=== PATIENT | female | born 2000 | race Caucasian/White ===

== ENCOUNTER 2024-05-28 11:28 | Emergency (ER) | payer MEDICAID, SELFPAY ==
[2024-05-28 11:30] VITALS: BMI 22.1
[2024-05-28 11:36] VITALS: BP 113/68; PULSE 92; RESP 19; TEMP 36.7; O2SAT 97; BMI 21.7
--- NOTE | 2024-05-28 11:38 | XR_ITS ---
ADDENDUM: Examination: OB Transvaginal ultrasound of the pelvis, complete Technique: Transvaginal sonographic images pelvis performed using gandhi scale imaging Exam date and time: May 28, 2024 1148 hours INDICATIONS: History adrenal medium cramping beginning 30 minutes ago FINDINGS: Uterus 8.3 x 5.0 x 6.3 cm CRL 1.8 cm corresponds to 8 weeks 2 days gestational age Cardiac motion 173 BPM Adjacent subchorionic hemorrhage 5 x 3 x 7 mm Right ovary 2.3 cm arterial flow Left ovary 2.4 cm arterial flow IMPRESSION: Viable intrauterine gestation 8 weeks 2 days. By: Dr. Ludwig Valdez on 05/30/24 9:16am --------- Examination: Complete OB ultrasound S than 14 weeks Date and time of exam: May 28, 2024 1224 hrs. Indications: A vaginal bleeding and pelvic cramping beginning 30 minutes ago Findings: Viable intrauterine single fetus with single amniotic sac pole 1.8 cm corresponds to 8 weeks 2 days gestational age Cardiac motion 173 BPM Adjacent subchorionic hemorrhage 5 x 3 x 7 mm. Survey of intracranial anatomy, spinal anatomy, abdominal anatomy, four-chamber heart performed with no abnormalities identified. Right ovary 2.3 cm arterial flow Left ovary 2.4 cm arterial flow Impression: Viable intrauterine gestation 8 weeks 2 days. [facility]
--- NOTE | 2024-05-28 11:59 | EDNOTE_ITS ---
<Statement entered by Fatuma Francisco MD - 05/30/24 07:12> As co-signing physician, I was present and available for consult prn. I concur with the plan and care as documented by the midlevel provider. ED OB Contraction Preg RMI/HPI General Chief complaint: Vaginal Bleeding Stated complaint: HEAVY BLEEDING x 20 MIN AND + PREG Time Seen by Provider: 05/28/24 11:38 Source: patient Arrival date/time: 05/28/24 11:28 This is a 23-year-old female who presents to the emergency department with complaints of vaginal bleeding for 30 minutes. She does report she is approximately 14 weeks . History of a 3 para 0 A2 1 stillbirth. Denies any abdominal pain no flank pain no dysuria. Mode of arrival: ambulatory Limitations: no limitations Related Data Allergies Allergy/AdvReac Type Severity Reaction Status Date / Time cephalexin (From Keflex) Allergy Hallucinati Verified 05/28/24 11:33 ng Review of Systems Review of Systems Systems Reviewed: All systems reviewed, normal except as documented Narrative Review of Systems: Gen: No fever, no chills, no weight loss EYES: No discharge, no visual changes, no pain HEENT: No ear pain, no congestion, no sore throat PULM: No shortness of breath, no cough, no congestion CV: No chest pain, no dyspnea on exertion, no palpitations GI: No nausea, no vomiting, no diarrhea, no pain, no constipation : No frequency, no urgency, no dysuria, ++vaginal bleeding Musc/skel: No joint pain, no back pain Skin: No rash Psyc: No hallucinations, no depression Heme/Lymph: No easy bleeding or bruising tendencies Neuro: No weakness, no headache ED Exam General Limitations: Present no limitations General appearance: Present alert and in no apparent distress Head Head exam: Present atraumatic Eye Eye exam: Present normal appearance, PERRL and EOMI ENT ENT exam: Present normal exam, normal oropharynx and mucous membranes moist Neck Neck exam: Present normal inspection, full ROM and trachea midline Chest Chest inspection: Present normal inspection and symmetric chest wall rise Respiratory Respiratory exam: Present normal lung sounds bilaterally Cardiovascular Cardiovascular exam: Present regular rate, normal rhythm and normal heart sounds Abdominal Exam Abdominal exam: Present soft and normal bowel sounds Extremities Exam Extremities exam: Present normal inspection and full ROM Back Exam Back exam: Present normal inspection and full ROM Neurological Exam Neurological exam: Present alert, oriented X3 and CN II-XII intact Psychiatric Psychiatric exam: Present normal affect and normal mood Skin Skin exam: Present warm, dry, intact and normal color Course Quality Measures none Orders Category Date Time Status US OB >= 14 weeks Fetus Stat Exams 05/28/24 11:38 Completed US OB transvaginal Stat Exams 05/28/24 12:41 Ordered ABO/RH Type Stat Lab 05/28/24 12:05 Completed Beta HCG,Quantitative Stat Lab 05/28/24 12:05 Completed CBC Stat Lab 05/28/24 12:05 Completed Comprehensive Metabolic Panel Stat Lab 05/28/24 12:05 Completed Urinalysis Stat Lab 05/28/24 11:38 Ordered Urine Culture Stat Lab 05/28/24 11:38 Ordered Vital Signs Vital signs: Vital Signs Temperature 98.0 F 05/28/24 11:36 Pulse Rate 92 05/28/24 11:36 Respiratory Rate 19 05/28/24 11:36 Blood Pressure 113/68 05/28/24 11:36 Pulse Oximetry (%) 97 05/28/24 11:36 Oxygen Delivery Method Room Air 05/28/24 11:36 Vaginal Bleeding MDM Narrative MDM Narrative: female presents to the ED today for vaginal bleeding. Transvaginal ultrasound reveals an IUP of approximately 8 weeks without adnexal masses, with a intra subchronic hemorrhage.. No OB consult indicated at this time. No RhoGam indicated given the patient's Rh status. No antibiotics indicated for UTI or asymptomatic bacteriuria anemia in given urine without leukocytosis, without nitrates or without bacteria. Patient is comfortable with plan patient will follow up with OB in 2 days for repeat bHCG levels. Strict return to ED precautions given. Patient verbalized understanding Patient data External records reviewed:: [facility] previous records Clinical information provided by:: patient and parent Social determinants that could affect healthcare access:: none Patient has the following chronic illnesses:: no How is presenting disease/condition affected by chronic disease/condition?: no chronic disease Evaluation data The following diagnostics were reviewed and interpreted by me:: lab results and radiology exam(s) Lab and/or radiology exams considered but not ordered:: no Interpretation Summary: Examination: Complete OB ultrasound S than 14 weeks Date and time of exam: May 28, 2024 1224 hrs. Indications: A vaginal bleeding and pelvic cramping beginning 30 minutes ago Findings: Viable intrauterine single fetus with single amniotic sac pole 1.8 cm corresponds to 8 weeks 2 days gestational age Cardiac motion 173 BPM Adjacent subchorionic hemorrhage 5 x 3 x 7 mm. Survey of intracranial anatomy, spinal anatomy, abdominal anatomy, four-chamber heart performed with no abnormalities identified. Right ovary 2.3 cm arterial flow Left ovary 2.4 cm arterial flow Impression: Viable intrauterine gestation 8 weeks 2 days. Medications / Prescriptions Medications or Prescriptions considered but not ordered:: no Medication administrations:: No Consultations Consultation(s) initiated? (list below): No Diagnosis Vaginal Bleeding Differential Diagnosis: missed , threatened , dysfunctional uterine bleeding, menometrorrhagia and incomplete Most likely diagnosis given after review of the tests above:: Threatened , subchorionic hemorrhage. Admission Indicated Admission indicated?: not indicated Admission Request Was there a request for admission?: No Disposition Plan Disposition Plan: Discharge Discharge Attestation Discharge Attestation: The patient and all family members were given an opportunity to ask questions and understood the discharge instructions. Discharge instructions specifically effects, indications for sooner follow up or return to the emergency department, and the expected course of current diagnosis. Patient condition: Stable Discharge Plan Plan Patient Disposition: HOME (Self Care) Patient condition on transfer: Stable Problem List Clinical Impression: Vaginal bleeding, Subchorionic hemorrhage in first trimester Patient/Caregiver Discharge Instructions Discharge Activity: activity as tolerated Education Materials: Bleeding During Early Additional Instructions: It is very important for you to follow-up with your OB doctor. Bed rest. Return to the emergency department this any worsening symptoms any condition. Print Language: Kiswahili Stand Alone Forms: Anya Award Info., Patient Portal Info Letter PA/ZAYDA Supervising Physician PA/ZAYDA Supervising Physician: Dr. Metcalf
[2024-05-28 12:22] LABS: Basophils # (Auto) 0.1 Thou/mm3 (0.0-0.2); Basophils % (Auto) 1 % (0-2.5); Eosinophils # (Auto) 0.1 Thou/mm3 (0.0-0.5); Eosinophils % (Auto) 1 % (0-10); Hematocrit 30.5 % (36.0-46.0); Hemoglobin 11.2 g/dL (12.0-16.0); Immature Granulocytes % (Auto) 1 % (0-0); Lymphocytes # (Auto) 1.7 Thou/mm3 (1.0-4.8); Lymphocytes % (Auto) 18 % (10-50); Mean Corpuscular HGB Conc 36.7 g/dl (31.0-37.0); Mean Corpuscular Hemoglobin 32.2 pg (25.0-35.0); Mean Corpuscular Volume 88 fL (80-100); Monocytes # (Auto) 1.8 Thou/mm3 (0.0-0.8); Monocytes % (Auto) 19 % (0-12); Neutrophils # (Auto) 5.8 Thou/mm3 (1.8-7.7); Neutrophils % (Auto) 62 % (37-80); Nucleated Red Blood Cell % 0 /100 WBC (0); Platelet Count 244 Thou/mm3 (140-440); RDW Standard Deviation 42.6 fL (36.4-46.3); Red Blood Count 3.48 Miln/mm3 (4.00-5.20); White Blood Count 9.4 Thou/mm3 (3.6-11.0)
[2024-05-28 13:05] LABS: Alanine Aminotransferase 30 U/L (10-49); Albumin, Serum 4.7 gm/dL (3.5-5.0); Albumin/Globulin Ratio 1.6 (1.2-2.2); Alkaline Phosphatase 70 U/L (46-116); Anion Gap 10 (7-16); Aspartate Amino Transferase 35 U/L (0-34); BUN/Creatinine Ratio 11 Ratio (12-20); Beta HCG,Quantitative 48205 mIU/mL (<5.0); Bilirubin,Total 0.7 mg/dL (0.3-1.2); Blood Urea Nitrogen 8 mg/dL (9-23); Calcium 9.3 mg/dL (8.3-10.6); Calcium (Corrected) 9.3 mg/dL (8.5-10.1); Carbon Dioxide 23.3 mMol/L (20.0-31.0); Chloride 102 mMol/L (98-107); Creatinine (Component) 0.7 mg/dL (0.6-1.3); Estimated Creatinine Clearance 105.2 mL/min (>60); Glucose 91 mg/dL (74-106); Osmolality,Calculated 268 (275-295); Potassium 3.2 mMol/L (3.4-5.1); Sodium 135 mMol/L (136-145); Total Protein 7.7 gm/dL (5.7-8.2); eGFR > 60 See Note
[2024-05-28 14:28] VITALS: BP 126/73; PULSE 98; RESP 16; TEMP 36.8; O2SAT 99
== END 2024-05-28 14:47 | disposition home or self-care (01) ==
LOC: SERX 14:40
PROVIDERS: Nurse Practitioner Primary Care; Emergency Provider Emergency Medicine
DX: O20.8 Other hemorrhage in early pregnancy (principal); Z3A.14 14 weeks gestation of pregnancy
CPT/HCPCS: 36415; 76805; 76817; 80053; 81001; 84702; 85025; 86900; 86901; 87086; 99284

== ENCOUNTER 2024-07-18 13:45 | Emergency (ER) | payer MEDICAID, SELFPAY ==
[2024-07-18 13:55] VITALS: BP 142/85; PULSE 103; RESP 18; TEMP 36.6; O2SAT 98
--- NOTE | 2024-07-18 13:59 | XR_ITS ---
Examination: Complete OB ultrasound greater than 14 weeks Date and time of exam: July 18, 2024 1415 hours INDICATIONS: Heavy vaginal bleeding beginning 20 minutes ago, subchorionic hemorrhage 5 x 3 x 7 mm on OB Y sonogram May 28, 2024 Findings: Viable intrauterine single fetus with single amniotic sac presentation transverse head left upper abdomen Cardiac motion 162 BPM Placenta anterior grade 1, large subchorionic hemorrhage 9.4 x 3.6 x 7.4 cm Umbilical cord insertion seen Cervix 2.1 cm closed Right ovary 2.3 cm arterial flow Left ovary obscured by bowel gas. Composite estimated gestational age based on BPD, head circumference, abdominal circumference, femur length is 15 weeks 5 days Estimated weight 130 g. Survey of intracranial anatomy, spinal anatomy, abdominal anatomy, four-chamber heart performed with no abnormalities identified. IMPRESSION: Viable intrauterine gestation., Transverse presentation Placenta anterior grade 1, large subchorionic hemorrhage 9.4 x 3.6 x 7.4 cm
--- NOTE | 2024-07-18 14:00 | EDRME_ITS ---
Rapid Medical Screening Exam [facility] Arrival date/time: 07/18/24 13:45 23-year-old female presents to the emergency room with a chief complaint of vaginal bleeding x 2 days patient is currently 16 weeks . Patient is currently taking blood thinner shots for blood clots. Patient began having bleeding and pelvic cramping. I have greeted and performed a focused initial assessment of this patient. A comprehensive ED assessment and evaluation of the patient, analysis of all test results, and completion of the medical decision making process will be conducted by additional ED providers. Chief Complaint: OB/Uterine Contractions Vital signs: Vital Signs Temperature 98 F 07/18/24 13:55 Pulse Rate 103 H 07/18/24 13:55 Respiratory Rate 18 07/18/24 13:55 Blood Pressure 142/85 H 07/18/24 13:55 Pulse Oximetry (%) 98 07/18/24 13:55 Oxygen Delivery Method Room Air 07/18/24 13:55 Vital signs reviewed by provider: Yes
[2024-07-18 14:30] LABS: Basophils # (Auto) 0.1 Thou/mm3 (0.0-0.2); Basophils % (Auto) 0 % (0-2.5); Eosinophils % (Auto) 0 % (0-10); Hematocrit 30.5 % (36.0-46.0); Hemoglobin 11.7 g/dL (12.0-16.0); Immature Granulocytes % (Auto) 1 % (0-0); Immature Granulocytes Auto 0.27 Thou/mm3 (0.00-0.00); Lymphocytes % (Auto) 14 % (10-50); Mean Corpuscular HGB Conc 38.4 g/dl (31.0-37.0); Mean Corpuscular Hemoglobin 33.7 pg (25.0-35.0); Mean Corpuscular Volume 88 fL (80-100); Monocytes # (Auto) 1.6 Thou/mm3 (0.0-0.8); Monocytes % (Auto) 7 % (0-12); Neutrophils # (Auto) 16.4 Thou/mm3 (1.8-7.7); Neutrophils % (Auto) 77 % (37-80); Nucleated Red Blood Cell % 0 /100 WBC (0); Platelet Count 306 Thou/mm3 (140-440); RDW Standard Deviation 43.5 fL (36.4-46.3); Red Blood Count 3.47 Miln/mm3 (4.00-5.20); White Blood Count 21.4 Thou/mm3 (3.6-11.0)
[2024-07-18 15:16] LABS: Collection Type, Urine Clean Catch
[2024-07-18 15:18] LABS: Alanine Aminotransferase 13 U/L (10-49); Albumin, Serum 4.4 gm/dL (3.5-5.0); Albumin/Globulin Ratio 1.4 (1.2-2.2); Alkaline Phosphatase 62 U/L (46-116); Anion Gap 11 (7-16); Aspartate Amino Transferase 30 U/L (0-34); BUN/Creatinine Ratio 18 Ratio (12-20); Beta HCG,Quantitative 21552 mIU/mL (<5.0); Bilirubin,Total 0.8 mg/dL (0.3-1.2); Blood Urea Nitrogen 11 mg/dL (9-23); Calcium 9.1 mg/dL (8.3-10.6); Calcium (Corrected) 9.1 mg/dL (8.5-10.1); Carbon Dioxide 20.8 mMol/L (20.0-31.0); Chloride 103 mMol/L (98-107); Creatinine (Component) 0.6 mg/dL (0.6-1.3); Globulin 3.2 gm/dL (2.3-3.5); Glucose 80 mg/dL (74-106); Osmolality,Calculated 268 (275-295); Potassium 3.6 mMol/L (3.4-5.1); Sodium 135 mMol/L (136-145); Total Protein 7.6 gm/dL (5.7-8.2); eGFR > 60 See Note
[2024-07-18 15:46] LABS: Bacteria,Urine 1+; Bilirubin,Urine Negative (Negative); Blood,Urine 2+ (Negative); Clarity,Urine Clear (Clear/Hazy); Color,Urine Yellow (Lt Yel-Yel); Glucose, Urine Negative (Negative); Ketones,Urine 1+ (Negative); Leukocyte Esterase,Urine Negative (Negative); Nitrite,Urine Negative (Negative); PH,Urine 6.5 (5.0-7.0); Protein,Urine Trace (Neg - Trace); RBC,Urine 2 /hpf (0-3); Specific Gravity,Urine 1.019 (1.001-1.035); Squamous Epithelial Cell,Urine 1 /hpf (0-5); Urobilinogen,Urine Negative mg/dL (0.0-1.0); WBC,Urine 1 /hpf (0-5)
--- NOTE | 2024-07-18 17:10 | EDNOTE_ITS ---
ED General RME/HPI General Chief complaint: OB/Uterine Contractions Stated complaint: PREG 16WKS, BLEEDING HEAVILY, SOME CRAMPING Time Seen by Provider: 07/18/24 17:01 Arrival date/time: 07/18/24 13:45 CC: Gush of vaginal blood with low abdominal cramping HPI patient is a at estimated 15 weeks with a large amount of vaginal bleeding that has since eased up. The patient is on Lovenox for clots. Patient denies fever chills shortness of breath or difficulty breathing. She is seen by Dr. Addison for OB. Patient is awake alert oriented nontoxic-appearing not in any acute distress. RME / HPI RME / HPI narrative: 07/18/24 13:45 23-year-old female presents to the emergency room with a chief complaint of vaginal bleeding x 2 days patient is currently 16 weeks . Patient is currently taking blood thinner shots for blood clots. Patient began having bleeding and pelvic cramping. I have greeted and performed a focused initial assessment of this patient. A comprehensive ED assessment and evaluation of the patient, analysis of all test results, and completion of the medical decision making process will be conducted by additional ED providers. Related Data Allergies Allergy/AdvReac Type Severity Reaction Status Date / Time cephalexin (From Keflex) Allergy Hallucinati Verified 07/18/24 13:48 ng Review of Systems Review of Systems Narrative Review of Systems: GEN: No fever, no chills, no weight loss EYES: No discharge, no visual changes, no pain HEENT: No ear pain, no congestion, no sore throat PULM: No shortness of breath, no cough, no congestion CV: No chest pain, no dyspnea on exertion, no palpitations GI: No nausea, no vomiting, no diarrhea, no pain, no constipation : No frequency, no urgency, no dysuria MUSC/SKEL: No joint pain, no back pain SKIN: No rash PSYCH: No hallucinations, no depression HEME/LYMPH: No easy bleeding or bruising tendencies NEURO: No weakness, no headache Past Medical History Past Medical History CARDIAC: Negative Congestive Heart Failure RESPIRATORY: Negative Chronic Obstructive Pulmonary Disease (COPD) GENITOURINARY: Negative Renal Disease ENDOCRINE: Negative Diabetes Mellitus Type 1 or Diabetes Mellitus Type 2 Social History SMOKING STATUS: Former smoker ED Exam Narrative Physical exam: [General: Anxious but not in any acute distress Head normocephalic HEENT: Within acceptable limits Neck is supple nontender Chest equal chest rise nontender to palpation Respiratory: Clear to auscultation no wheezes crackles or rubs CV: Rate rhythm is regular no murmurs rubs or clicks Abdomen is soft nontender no masses positive bowel sounds all 4 quadrants Back: No CVA tenderness no spinous process tenderness from cervical spine thoracic and lumbar spine Skin: Intact no petechiae rash induration ulceration or crepitus Extremities: Moving all extremity against resistance cap refill less than 2 seconds neurosensory intact Neuro: Awake alert oriented x3 Glascow coma 15 no focal deficits] Course Quality Measures none Orders Category Date Time Status US OB >= 14 weeks Fetus Stat Exams 07/18/24 13:59 Completed ABO/RH Type Stat Lab 07/18/24 14:09 Completed Beta HCG,Quantitative Stat Lab 07/18/24 14:09 Completed CBC Stat Lab 07/18/24 14:09 Completed CMP [Comprehensive Metabolic Panel] Stat Lab 07/18/24 14:09 Completed UA [Urinalysis] Stat Lab 07/18/24 14:59 Completed Vital Signs Vital signs: Vital Signs Temperature 98 F 07/18/24 13:55 Pulse Rate 103 H 07/18/24 13:55 Respiratory Rate 18 07/18/24 13:55 Blood Pressure 142/85 H 07/18/24 13:55 Pulse Oximetry (%) 98 07/18/24 13:55 Oxygen Delivery Method Room Air 07/18/24 13:55 [facility] Patient data External records reviewed:: [facility] previous records Clinical information provided by:: patient Social determinants that could affect healthcare access:: none Patient has the following chronic illnesses:: On blood thinners for clots. How is presenting disease/condition affected by chronic disease/condition?: e xacerbated by Evaluation data The following diagnostics were reviewed and interpreted by me:: lab results and radiology exam(s) Lab and/or radiology exams considered but not ordered:: CBC shows a leukocytosis of 21.4 H&H of 11.7 and 30.5 respectively. Platelets at 306 CMP shows no significant electrolyte imbalances renal impairment transaminitis or T. bili elevation. Urine shows 2+ blood 1+ ketones 1+ bacteremia no leukocyte esterase or nitrite. Blood type is be positive. ultrasound shows the patient has a viable gestation at 15 weeks 5 days with heart tones of 162 patient also has a placenta anterior grade large subchorionic hemorrhage at 9 x 0.4 x 3 0.6 x 7.4 cm. Interpretation Summary: Patient's case discussed with Dr. Anders, MOBILE HOME SET UP PERSON for the patient, who wants the patient to stop the Lovenox aspirin and see his office tomorrow morning. Medications Medications considered but not ordered:: None Medication administrations:: None Consultations Consultation(s) initiated? (list below): Yes Consultation #1 (Physician, Specialty, Details): Kyra Time: 17:14 Diagnosis Differential Diagnosis ED Complaint MDM: Subchorionic hemorrhage, SAB, miscarriage Most likely diagnosis given after review of the tests above:: Subchorionic hemorrhage Admission Indicated Admission indicated?: not indicated Explain why admission is indicated or not indicated:: Stable for outpatient follow-up Admission Request Was there a request for admission?: No Disposition Plan Disposition Plan: Discharge Discharge Attestation Discharge Attestation: The patient and all family members were given an opportunity to ask questions and understood the discharge instructions. Discharge instructions specifically effects, indications for sooner follow up or return to the emergency department, and the expected course of current diagnosis. Patient condition: Stable Medical Decision Making Differential Diagnosis Differential Diagnosis: Subchorionic hemorrhage, SAB, miscarriage Lab Data 07/18/24 14:09 07/18/24 14:09 Labs: Lab Results 07/18/24 07/18/24 Range/Units 14:09 14:59 WBC 21.4 H (3.6-11.0) Thou/mm3 RBC 3.47 L (4.00-5.20) Miln/mm3 Hgb 11.7 L (12.0-16.0) g/dL Hct 30.5 L (36.0-46.0) % MCV 88 (80-100) fL MCH 33.7 (25.0-35.0) pg MCHC 38.4 H (31.0-37.0) g/dl RDW Std Deviation 43.5 (36.4-46.3) fL Plt Count 306 (140-440) Thou/mm3 Neut % (Auto) 77 (37-80) % Lymph % (Auto) 14 (10-50) % [place] % (Auto) 7 (0-12) % Eos % (Auto) 0 (0-10) % Baso % (Auto) 0 (0-2.5) % Neut # (Auto) 16.4 H (1.8-7.7) Thou/mm3 Lymph # (Auto) 3.0 (1.0-4.8) Thou/mm3 [place] # (Auto) 1.6 H (0.0-0.8) Thou/mm3 Eos # (Auto) 0.0 (0.0-0.5) Thou/mm3 Baso # (Auto) 0.1 (0.0-0.2) Thou/mm3 Immature Gran # (Auto) 0.27 H (0.00-0.00) Thou/mm3 Absolute Nucleated RBC 0.00 (0.00-0.00) Thou/mm3 Immature Gran % 1 H (0-0) % Nucleated RBC % 0 (0) /100 WBC Sodium 135 L (136-145) mMol/L Potassium 3.6 (3.4-5.1) mMol/L Chloride 103 (98-107) mMol/L Carbon Dioxide 20.8 (20.0-31.0) mMol/L Anion Gap 11 (7-16) BUN 11 (9-23) mg/dL Creatinine 0.6 (0.6-1.3) mg/dL Estim Creat Clear Calc Not Performed. eGFR > 60 (60 - ) See Note BUN/Creatinine Ratio 18 (12-20) Ratio Glucose 80 (74-106) mg/dL Calculated Osmolality 268 L (275-295) Calcium 9.1 (8.3-10.6) mg/dL Corrected Calcium 9.1 (8.5-10.1) mg/dL Total Bilirubin 0.8 (0.3-1.2) mg/dL AST 30 (0-34) U/L ALT 13 (10-49) U/L Alkaline Phosphatase 62 (46-116) U/L Total Protein 7.6 (5.7-8.2) gm/dL Albumin 4.4 (3.5-5.0) gm/dL Globulin 3.2 (2.3-3.5) gm/dL Albumin/Globulin Ratio 1.4 (1.2-2.2) Beta HCG, Quant 36301 (<5.0) mIU/mL Ur Collection Type Clean Catch Urine Color Yellow (Lt Yel-Yel) Urine Clarity Clear (Clear/Hazy) Urine pH 6.5 (5.0-7.0) Ur Specific [place] 1.019 (1.001-1.035) Urine Protein Trace (Neg - Trace) Urine Glucose (UA) Negative (Negative) Urine Ketones 1+ A (Negative) Urine Blood 2+ A (Negative) Urine Nitrite Negative (Negative) Urine Bilirubin Negative (Negative) Urine Urobilinogen (Auto) Negative (0.0-1.0) mg/dL Ur Leukocyte Esterase Negative (Negative) Urine RBC 2 (0-3) /hpf Urine WBC 1 (0-5) /hpf Ur Squamous Epith Cells 1 (0-5) /hpf Urine Bacteria 1+ A (None) Blood Type B Positive Blood Bank Wristband ID Yes Discharge Plan Plan Patient Disposition: HOME (Self Care) Patient condition on transfer: Stable Prescriptions/Referrals Referrals: Charline Gatica MD [Primary Care Provider] - In 1 week Problem List Clinical Impression: Subchorionic hemorrhage in first trimester Patient/Caregiver Discharge Instructions Other Activity Instructions:: Stop Lovenox, and aspirin, follow-up with Dr. Addison first thing tomorrow morning Education Materials: Bleeding During Early Print Language: Kuwaiti Stand Alone Forms: Anya Award Info., Patient Portal Info Letter, Work/School Release PA/CONSTRUCTION ENGINEERING MANAGER Supervising Physician PA/CONSTRUCTION ENGINEERING MANAGER Supervising Physician: Clifford Figueroa ENP
[2024-07-18 17:27] VITALS: BMI 22.3
== END 2024-07-18 17:30 | disposition home or self-care (01) ==
PROVIDERS: Nurse Practitioner Family; Emergency Provider Emergency Medicine; PCP Family Medicine
DX: O20.8 Other hemorrhage in early pregnancy (principal); Z3A.16 16 weeks gestation of pregnancy
CPT/HCPCS: 36415; 76805; 80053; 81001; 84702; 85025; 86900; 86901; 99284

== ENCOUNTER 2024-07-22 15:42 | Emergency (ER) | payer MEDICAID, SELFPAY ==
[2024-07-22 15:43] VITALS: BMI 22.3
[2024-07-22 16:32] VITALS: BP 115/70; PULSE 95; RESP 16; TEMP 37.1; O2SAT 98
--- NOTE | 2024-07-22 17:05 | EDNOTE_ITS ---
ED OB Contraction Preg RMI/HPI General Chief complaint: OB/Uterine Contractions Stated complaint: , bleeding, high risk 16 weeks Arrival date/time: 07/22/24 15:42 RME / HPI RME / HPI Narrative: G3, P0, 23-year-old female presents with ongoing bleeding, now worse x 2 days with large clots. She is complaining of pressure in the lower pelvic region. She has a history of subchorionic hemorrhage x 3. With her first which ended in miscarriage due to subchorionic hemorrhage at 28 weeks. Second ended in miscarriage due to subchorionic hemorrhage at 24 weeks and the patient is now currently at 16 weeks with known subchorionic hemorrhage. She is complaining of some fatigue and weakness as well as paleness of her skin and dry lips. She denies any fever or chills, dysuria, frequency or flank pain. Related Data Allergies Allergy/AdvReac Type Severity Reaction Status Date / Time cephalexin (From Keflex) Allergy Hallucinati Verified 07/18/24 13:48 ng Course Orders Category Date Time Status US OB transvaginal Stat Exams 07/22/24 16:59 Ordered ABO/RH Type Stat Lab 07/22/24 16:59 Ordered Beta HCG,Quantitative Stat Lab 07/22/24 16:59 Ordered CBC Stat Lab 07/22/24 16:59 Ordered CMP [Comprehensive Metabolic Panel] Stat Lab 07/22/24 16:59 Ordered PTT [Partial Thromboplastin Time] Stat Lab 07/22/24 17:01 Ordered Prothrombin Time with INR Stat Lab 07/22/24 17:01 Ordered UA, C/S IF [Urinalysis, C/S if Indicated] Stat Lab 07/22/24 16:59 Ordered Vital Signs Vital signs: Vital Signs Temperature 98.8 F 07/22/24 16:32 Pulse Rate 95 07/22/24 16:32 Respiratory Rate 16 07/22/24 16:32 Blood Pressure 115/70 07/22/24 16:32 Pulse Oximetry (%) 98 07/22/24 16:32 Oxygen Delivery Method Room Air 07/22/24 16:32 Discharge Plan Patient/Caregiver Discharge Instructions Print Language: Greenlandic
--- NOTE | 2024-07-22 17:07 | XR_ITS ---
Examination: Complete OB ultrasound greater than 14 weeks Date and time of exam: July 22, 2024 1716 hours Comparison July 18, 2024 INDICATIONS: Worsening vaginal bleeding today, vaginal bleeding this week, diagnosis high risk , large subchorionic hemorrhage noted on pelvic sonogram July 18, 2024 Findings: Viable intrauterine single fetus with single amniotic sac presentation transverse head of the upper abdomen Cardiac motion 155 BPM Placenta anterior grade 1 Subchorionic hemorrhage 11 x 2.6 x 5.4 cm Umbilical cord insertion seen Amniotic fluid index adequate Cervix 2.9 cm Right ovary 2.6 cm arterial flow Left ovary obscured by bowel gas. Composite estimated gestational age based on BPD, head circumference, abdominal circumference, femur length is 16 weeks 3 days Estimated weight 148 g. Survey of intracranial anatomy, spinal anatomy, abdominal anatomy, four-chamber heart performed with no abnormalities identified. Impression: Viable intrauterine gestation transverse presentation Again noted large subchorionic hemorrhage, 11.0 x 2.6 x 5.4 cm.
[2024-07-22 18:50] LABS: Collection Type, Urine Clean Catch
[2024-07-22 19:14] LABS: Bacteria,Urine 2+; Bilirubin,Urine Negative (Negative); Blood,Urine 3+ (Negative); Clarity,Urine Clear (Clear/Hazy); Color,Urine Colorless (Lt Yel-Yel); Culture Indicated,Urine Yes; Glucose, Urine Negative (Negative); Ketones,Urine Negative (Negative); Leukocyte Esterase,Urine Positive (Negative); Nitrite,Urine Negative (Negative); PH,Urine 6.5 (5.0-7.0); Protein,Urine Negative (Neg - Trace); RBC,Urine 3 /hpf (0-3); Specific Gravity,Urine 1.007 (1.001-1.035); Squamous Epithelial Cell,Urine 5 /hpf (0-5); Urobilinogen,Urine Negative mg/dL (0.0-1.0); WBC,Urine 6 /hpf (0-5)
--- NOTE | 2024-07-22 19:57 | PC.NURSE ---
@195 PT WAS CALLED OUTSIDE OF ER AND IN ER LOBBY FOR REIVEW AND NO ANSWER
--- NOTE | 2024-07-22 21:00 | PC.NURSE ---
called pt in er lobby and outside of er and no answer
--- NOTE | 2024-07-22 21:16 | PC.NURSE ---
called pt outisde of er and in er lobby and no answer
== END 2024-07-22 21:17 | disposition left against medical advice (07) ==
PROVIDERS: Physician Assistant; Emergency Provider Emergency Medicine; PCP Obstetrics & Gynecology
DX: O20.8 Other hemorrhage in early pregnancy (principal); Z3A.16 16 weeks gestation of pregnancy; Z53.29 Procedure and treatment not carried out because of patient's decision for other reasons
CPT/HCPCS: 76805; 80053; 81001; 84702; 85025; 85610; 85730; 86900; 86901; 87086; 99281

== ENCOUNTER 2024-07-29 20:31 | Emergency (ER) | payer MEDICAID, SELFPAY ==
[2024-07-29 20:41] VITALS: BP 102/61; PULSE 119; RESP 19; TEMP 36.8; O2SAT 99; BMI 22.3
--- NOTE | 2024-07-29 20:48 | XR_ITS ---
Examination: Complete OB ultrasound greater than 14 weeks Date and time of exam: July 29, 2024 2118 hrs. Indications: Vaginal bleeding beginning one week ago, high risk , history stillbirths Findings: Viable intrauterine single fetus with single amniotic sac presentation transverse Cardiac motion 167 BPM Placenta anterior grade 1 with subchorionic hemorrhage Amniotic fluid index 9.8 cm Cervix 2.7 cm Ovaries obscured by bowel gas. Composite estimated gestational age based on BPD, head circumference, abdominal circumference, femur length is 17 weeks 0 days Estimated weight 174 g. Survey of intracranial anatomy, spinal anatomy, abdominal anatomy, four-chamber heart performed with no abnormalities identified. Impression: Viable intrauterine gestation transverse presentation Subchorionic hemorrhage 18 x 15 x 24 mm.
--- NOTE | 2024-07-29 20:49 | PD.EDRME ---
Rapid Medical Screening Exam RME Arrival date/time: 07/29/24 20:31 23 yo f present to ED for c/o ongoing vag bleeding, 17 week I have greeted and performed a focused initial assessment of this patient. A comprehensive ED assessment and evaluation of the patient, analysis of all test results, and completion of the medical decision making process will be conducted by additional ED providers. Chief Complaint: Vaginal Bleeding Time Seen by Provider: 07/29/24 20:38 Vital signs: Vital Signs Temperature 98.2 F 07/29/24 20:41 Pulse Rate 119 H 07/29/24 20:41 Respiratory Rate 19 07/29/24 20:41 Blood Pressure 102/61 07/29/24 20:41 Pulse Oximetry (%) 99 07/29/24 20:41 Oxygen Delivery Method Room Air 07/29/24 20:41
[2024-07-29 21:18] LABS: Basophils # (Auto) 0.1 Thou/mm3 (0.0-0.2); Basophils % (Auto) 1 % (0-2.5); Eosinophils # (Auto) 0.3 Thou/mm3 (0.0-0.5); Eosinophils % (Auto) 1 % (0-10); Hematocrit 28.6 % (36.0-46.0); Hemoglobin 10.5 g/dL (12.0-16.0); Immature Granulocytes % (Auto) 3 % (0-0); Lymphocytes # (Auto) 3.7 Thou/mm3 (1.0-4.8); Lymphocytes % (Auto) 18 % (10-50); Mean Corpuscular HGB Conc 36.7 g/dl (31.0-37.0); Mean Corpuscular Hemoglobin 33.5 pg (25.0-35.0); Mean Corpuscular Volume 91 fL (80-100); Monocytes # (Auto) 1.4 Thou/mm3 (0.0-0.8); Monocytes % (Auto) 7 % (0-12); Neutrophils # (Auto) 14.1 Thou/mm3 (1.8-7.7); Neutrophils % (Auto) 70 % (37-80); Nucleated Red Blood Cell % 0 /100 WBC (0); Platelet Count 288 Thou/mm3 (140-440); Red Blood Count 3.13 Miln/mm3 (4.00-5.20); White Blood Count 20.2 Thou/mm3 (3.6-11.0)
[2024-07-29 21:43] LABS: INR 0.9 (0.9-1.3); Prothrombin Time 10.3 Seconds (9.0-12.2)
[2024-07-29 22:02] LABS: Alanine Aminotransferase < 7 U/L (10-49); Albumin, Serum 3.9 gm/dL (3.5-5.0); Albumin/Globulin Ratio 1.3 (1.2-2.2); Alkaline Phosphatase 69 U/L (46-116); Anion Gap 7 (7-16); Aspartate Amino Transferase 16 U/L (0-34); BUN/Creatinine Ratio 19 Ratio (12-20); Bilirubin,Total 0.4 mg/dL (0.3-1.2); Blood Urea Nitrogen 13 mg/dL (9-23); Calcium 8.7 mg/dL (8.3-10.6); Calcium (Corrected) 8.8 mg/dL (8.5-10.1); Carbon Dioxide 23.7 mMol/L (20.0-31.0); Chloride 106 mMol/L (98-107); Creatinine (Component) 0.7 mg/dL (0.6-1.3); Estimated Creatinine Clearance 105.2 mL/min (>60); Glucose 91 mg/dL (74-106); Osmolality,Calculated 273 (275-295); Potassium 3.7 mMol/L (3.4-5.1); Sodium 137 mMol/L (136-145); Total Protein 6.9 gm/dL (5.7-8.2); eGFR > 60 See Note
[2024-07-29 22:35] LABS: Beta HCG,Quantitative 12936 mIU/mL (<5.0)
[2024-07-29 23:23] VITALS: BP 118/57; PULSE 80; RESP 18; TEMP 36.7; O2SAT 99
[2024-07-29 23:26] LABS: Collection Type, Urine Voided
[2024-07-29 23:53] LABS: Bacteria,Urine Rare; Bilirubin,Urine Negative (Negative); Blood,Urine 3+ (Negative); Clarity,Urine Clear (Clear/Hazy); Color,Urine Lt-Yellow (Lt Yel-Yel); Glucose, Urine Negative (Negative); Ketones,Urine Negative (Negative); Leukocyte Esterase,Urine Negative (Negative); Nitrite,Urine Negative (Negative); Protein,Urine Negative (Neg - Trace); RBC,Urine 7 /hpf (0-3); Specific Gravity,Urine 1.009 (1.001-1.035); Squamous Epithelial Cell,Urine 5 /hpf (0-5); Urobilinogen,Urine Negative mg/dL (0.0-1.0); WBC,Urine 1 /hpf (0-5)
--- NOTE | 2024-07-30 01:29 | EDNOTE_ITS ---
ED OB Contraction Preg RMI/HPI General Chief complaint: Vaginal Bleeding Stated complaint: 17 wks preg vag bleeding cramping Time Seen by Provider: 07/29/24 20:38 Arrival date/time: 07/29/24 20:31 Limitations: no limitations RME / HPI RME / HPI Narrative: 07/29/24 20:31 23 yo f present to ED for c/o ongoing vag bleeding, 17 week I have greeted and performed a focused initial assessment of this patient. A comprehensive ED assessment and evaluation of the patient, analysis of all test results, and completion of the medical decision making process will be conducted by additional ED providers. Dr. Grady's Main ED Evaluation: 23yo female who is 17 weeks gestation presents to the ED for a chief complaint of vaginal bleeding. Patient states she was told on 07/23/24 that she had a subchorionic hemorrhage. She states that since 07/18/24, she has had vaginal bleeding with intermittent quarter-sized clots, noting she changes her pad 3x/day. She endorses having intermittent abdominal pain that radiates to her back for the last 2 days, reporting it has been progressively getting worse, so she came in for evaluation. She reports associated nausea. Denies any dysuria, vomiting or any other associated symptoms. Patient reports having a history of placental abruption with both of her previous pregnancies. Her TELEGRAPHIC INSTRUMENT SUPERVISOR is Dr. Shay Addison at [facility]. Related Data Allergies Allergy/AdvReac Type Severity Reaction Status Date / Time cephalexin (From Keflex) Allergy Hallucinati Verified 08/11/24 16:08 palmira Review of Systems Review of Systems Systems Reviewed: All systems reviewed, normal except as documented Past Medical History Past Medical History CARDIAC: Negative Congestive Heart Failure RESPIRATORY: Negative Chronic Obstructive Pulmonary Disease (COPD) GENITOURINARY: Negative Renal Disease ENDOCRINE: Negative Diabetes Mellitus Type 1 or Diabetes Mellitus Type 2 Social History SMOKING STATUS: Never smoker ED Exam General Limitations: Present no limitations General appearance: Present alert and in no apparent distress Head Head exam: Present atraumatic Eye Eye exam: Present normal appearance, PERRL and EOMI ENT ENT exam: Present normal exam, normal oropharynx and mucous membranes moist Neck Neck exam: Present normal inspection, full ROM and trachea midline Chest Chest inspection: Present normal inspection and symmetric chest wall rise Respiratory Respiratory exam: Present normal lung sounds bilaterally Cardiovascular Cardiovascular exam: Present regular rate, normal rhythm and normal heart sounds Abdominal Exam Abdominal exam: Present soft and normal bowel sounds Extremities Exam Extremities exam: Present normal inspection and full ROM Back Exam Back exam: Present normal inspection and full ROM Neurological Exam Neurological exam: Present alert, oriented X3 and CN II-XII intact Psychiatric Psychiatric exam: Present normal affect and normal mood Skin Skin exam: Present warm, dry, intact and normal color Course Quality Measures none Orders Category Date Time Status US OB >= 14 weeks Fetus Stat Exams 07/29/24 20:48 Completed Beta HCG,Quantitative Stat Lab 07/29/24 20:59 Completed CBC Stat Lab 07/29/24 20:59 Completed CMP [Comprehensive Metabolic Panel] Stat Lab 07/29/24 20:59 Completed Drug Screen,Urine Stat Lab 07/29/24 23:13 Completed INR [Prothrombin Time with INR] Stat Lab 07/29/24 20:59 Completed UA [Urinalysis] Stat Lab 07/29/24 23:12 Completed Vital Signs Vital signs: Vital Signs Temperature 98.2 F 07/29/24 20:41 Pulse Rate 119 H 07/29/24 20:41 Respiratory Rate 19 07/29/24 20:41 Blood Pressure 102/61 07/29/24 20:41 Pulse Oximetry (%) 99 07/29/24 20:41 Oxygen Delivery Method Room Air 07/29/24 20:41 Vaginal Bleeding MDM Narrative MDM Narrative: Scribe Attestation: 07/29/24 - Becky Tompkins am scribing for and in the presence of Dr. Grady. Patient is concerned over her wellbeing due to her previous histories of placental abruptions and is considering terminating this . Will consult to TELEGRAPHIC INSTRUMENT SUPERVISOR. [id number]: Discussed case with Dr. Sena from TELEGRAPHIC INSTRUMENT SUPERVISOR regarding consultation. Discussed patients ED course, exam findings, labs, and radiology results. States to follow-up at the [facility] clinic. Patient data External records reviewed:: [facility] previous records (Per chart review, patient was seen here on 07/22/24 for bleeding, high risk 16 weeks.) Clinical information provided by:: patient Social determinants that could affect healthcare access:: none Patient has the following chronic illnesses:: none How is presenting disease/condition affected by chronic disease/condition?: no chronic disease Evaluation data The following diagnostics were reviewed and interpreted by me:: lab results and radiology exam(s) Lab and/or radiology exams considered but not ordered:: none Interpretation Summary: WBC count is 20.2, HnH is stable at 10.5/28.6, Platelets are normal, PT and INR are normal, [place] [address], UA shows 7 RBCs, according to my interpretation. [place] [facility] Report Signed Patient: PRABHA BELL Record#: [id number] Birthdate: 2000 Age/Sex: 23 / F Location: [facility] Attending Dr: Ordering Physician: Nelson Addison PA-C Date of Service: 07/29/24 Procedure(s): US OB >= 14 weeks Fetus Accession Number(s): [id number] cc: Ludwig Valdez MD; NO PRIMARY/FAMILY,PHYSICIAN; Nelson Addison PA-C~ Examination: Complete OB ultrasound greater than 14 weeks Date and time of exam: July 29, 2024 2118 hrs. Indications: Vaginal bleeding beginning one week ago, high risk , history stillbirths Findings: Viable intrauterine single fetus with single amniotic sac presentation transverse Cardiac motion 167 BPM Placenta anterior grade 1 with subchorionic hemorrhage Amniotic fluid index 9.8 cm Cervix 2.7 cm Ovaries obscured by bowel gas. Composite estimated gestational age based on BPD, head circumference, abdominal circumference, femur length is 17 weeks 0 days Estimated weight 174 g. Survey of intracranial anatomy, spinal anatomy, abdominal anatomy, four-chamber heart performed with no abnormalities identified. Impression: Viable intrauterine gestation transverse presentation Subchorionic hemorrhage 18 x 15 x 24 mm. Dictated By: Ludwig Valdez MD Signed By: <Electronically signed by Ludwig Valdez MD in OV> 07/29/24 3802 Medications / Prescriptions Medications or Prescriptions considered but not ordered:: none Medication administrations:: none Consultations Consultation(s) initiated? (list below): No Diagnosis Vaginal Bleeding Differential Diagnosis: other ( labor, UTI, subchorionic hemorrhage, bleeding in second trimester) Most likely diagnosis given after review of the tests above:: see clinical impression below Admission Indicated Admission indicated?: not indicated Admission Request Was there a request for admission?: No Disposition Plan Disposition Plan: Discharge Discharge Attestation Discharge Attestation: The patient and all family members were given an opportunity to ask questions and understood the discharge instructions. Discharge instructions specifically effects, indications for sooner follow up or return to the emergency department, and the expected course of current diagnosis. Patient condition: Stable Discharge Plan Plan Patient Disposition: HOME (Self Care) Patient condition on transfer: Stable Prescriptions/Referrals Referrals: No Primary/Family,Physician [Primary Care Provider] - In 1 week Problem List Clinical Impression: Subchorionic hemorrhage in first trimester, Vaginal bleeding Patient/Caregiver Discharge Instructions Education Materials: [facility] Subchorionic Hemorrhage Additional Instructions: You will need to follow-up across the street at the medical OB building to follow-up with any of the following physicians Dr. Funes, Dr Howell, Dr Sena, etc. for close OB follow-up for your previous placental abruption's. Call 911 or immediately return to the emergency department if you feel that you are having severe abdominal pain and pass out, you break your water, or any other concerns. Print Language: Indian Stand Alone Forms: Anya Award Info., Patient Portal Info Letter
[2024-07-30 02:03] VITALS: BP 118/57; PULSE 84; RESP 16; O2SAT 98
[2024-07-30 02:12] LABS: Amphetamine/Methamp Scrn,U Negative (Negative); Barbiturate Screen,Urine Negative (Negative); Benzodiazepines Screen,Urine Negative (Negative); Benzoylecgonine Screen, Ur Negative (Negative); Fentanyl Screen,Urine Negative (Negative); Opiate Screen,Urine Negative (Negative); THC Screen,Urine Positive (Negative)
== END 2024-07-30 02:07 | disposition home or self-care (01) ==
PROVIDERS: Physician Assistant; Emergency Provider Emergency Medicine
DX: O20.8 Other hemorrhage in early pregnancy (principal); Z3A.17 17 weeks gestation of pregnancy
CPT/HCPCS: 36415; 76805; 80053; 80307; 81001; 84702; 85025; 85610; 99284

== ENCOUNTER 2024-08-11 16:05 | Emergency (ER) | payer MEDICAID, SELFPAY ==
[2024-08-11 16:06] VITALS: BMI 23.6
[2024-08-11 16:18] VITALS: BP 116/71; PULSE 96; RESP 16; TEMP 36.8; O2SAT 99
--- NOTE | 2024-08-11 16:20 | PD.EDRME ---
Rapid Medical Screening Exam RME Arrival date/time: 08/11/24 16:05 23-year-old female presents the emergency room today states she is with complaints of pelvic pain reports she does not feel baby moving Chief Complaint: OB/Uterine Contractions Vital signs: Vital Signs Temperature 98.2 F 08/11/24 16:18 Pulse Rate 96 08/11/24 16:18 Respiratory Rate 16 08/11/24 16:18 Blood Pressure 116/71 08/11/24 16:18 Pulse Oximetry (%) 99 08/11/24 16:18 Oxygen Delivery Method Room Air 08/11/24 16:18
--- NOTE | 2024-08-11 16:21 | XR_ITS ---
Examination: Complete OB ultrasound greater than 14 weeks Date and time of exam: August 11, 2024 at 1630 hours INDICATIONS: Vaginal bleeding beginning 24 days ago with decreased movement today Findings: Viable intrauterine single fetus with single amniotic sac presentation Vertex spine maternal left Cardiac motion 167 BPM Placenta anterior grade 2. Umbilical cord insertion seen Amniotic fluid index 7.1 cm Cervix 2.3 cm Right ovary 2.6 cm arterial flow Ductal view obscured by bowel gas 5.8 x 1.4 x 5.1 cm subchorionic hemorrhage. Composite estimated gestational age based on BPD, head circumference, abdominal circumference, femur length is 19 weeks 1 day Estimated weight 268 g. Survey of intracranial anatomy, spinal anatomy, abdominal anatomy, four-chamber heart performed with no abnormalities identified. Impression: Viable intrauterine gestation vertex presentation Given the patient's large subchorionic hemorrhage, recommend short-term follow-up pelvic sonography.
[2024-08-11 17:13] LABS: Basophils # (Auto) 0.1 Thou/mm3 (0.0-0.2); Basophils % (Auto) 0 % (0-2.5); Eosinophils # (Auto) 0.2 Thou/mm3 (0.0-0.5); Eosinophils % (Auto) 1 % (0-10); Hematocrit 30.4 % (36.0-46.0); Hemoglobin 11.6 g/dL (12.0-16.0); Immature Granulocytes % (Auto) 3 % (0-0); Immature Granulocytes Auto 0.47 Thou/mm3 (0.00-0.00); Lymphocytes # (Auto) 2.5 Thou/mm3 (1.0-4.8); Lymphocytes % (Auto) 14 % (10-50); Mean Corpuscular HGB Conc 38.2 g/dl (31.0-37.0); Mean Corpuscular Hemoglobin 33.9 pg (25.0-35.0); Mean Corpuscular Volume 89 fL (80-100); Monocytes # (Auto) 1.2 Thou/mm3 (0.0-0.8); Monocytes % (Auto) 7 % (0-12); Neutrophils # (Auto) 13.7 Thou/mm3 (1.8-7.7); Neutrophils % (Auto) 75 % (37-80); Nucleated Red Blood Cell % 0 /100 WBC (0); Platelet Count 284 Thou/mm3 (140-440); RDW Standard Deviation 46.4 fL (36.4-46.3); Red Blood Count 3.42 Miln/mm3 (4.00-5.20); White Blood Count 18.1 Thou/mm3 (3.6-11.0)
[2024-08-11 17:44] LABS: Alanine Aminotransferase < 7 U/L (10-49); Albumin, Serum 4.1 gm/dL (3.5-5.0); Albumin/Globulin Ratio 1.3 (1.2-2.2); Alkaline Phosphatase 75 U/L (46-116); Anion Gap 8 (7-16); Aspartate Amino Transferase 18 U/L (0-34); BUN/Creatinine Ratio 17 Ratio (12-20); Bilirubin,Total 0.4 mg/dL (0.3-1.2); Blood Urea Nitrogen 10 mg/dL (9-23); Carbon Dioxide 23.6 mMol/L (20.0-31.0); Chloride 104 mMol/L (98-107); Creatinine (Component) 0.6 mg/dL (0.6-1.3); Estimated Creatinine Clearance 122.7 mL/min (>60); Globulin 3.2 gm/dL (2.3-3.5); Glucose 79 mg/dL (74-106); Osmolality,Calculated 269 (275-295); Potassium 3.6 mMol/L (3.4-5.1); Sodium 136 mMol/L (136-145); Total Protein 7.3 gm/dL (5.7-8.2); eGFR > 60 See Note
[2024-08-11 18:04] LABS: INR 0.9 (0.9-1.3); Partial Thromboplastin Time 25.6 Seconds (22.0-36.0); Prothrombin Time 10.2 Seconds (9.0-12.2)
[2024-08-11 18:14] LABS: Beta HCG,Quantitative 11186 mIU/mL (<5.0)
--- NOTE | 2024-08-11 20:48 | PC.NURSE ---
NO ANSWER FOR REVIEW
--- NOTE | 2024-08-11 21:05 | PC.NURSE ---
NO ANSWER FOR REVIEW
== END 2024-08-11 21:29 | disposition left against medical advice (07) ==
PROVIDERS: Nurse Practitioner Primary Care; Emergency Provider Emergency Medicine
DX: O26.899 Other specified pregnancy related conditions, unspecified trimester (principal); R10.2 Pelvic and perineal pain; O36.8190 Decreased fetal movements, unspecified trimester, not applicable or unspecified; O20.9 Hemorrhage in early pregnancy, unspecified; Z53.29 Procedure and treatment not carried out because of patient's decision for other reasons
CPT/HCPCS: 36415; 76805; 80053; 84702; 85025; 85610; 85730; 86900; 86901; 99284

== ENCOUNTER 2024-09-04 01:50 | Observation (INO) | payer MEDICAID, SELFPAY ==
[2024-09-04] VITALS (26 sets, daily range): BP systolic 116; BP diastolic 65; PULSE 66–84; RESP 16–100; TEMP 37.1; O2SAT 91–100; BMI 24.0
--- NOTE | 2024-09-04 02:12 | XR_ITS ---
Examination: Complete OB ultrasound greater than 14 weeks Date and time of exam: September 04, 2024 0342 hours INDICATION: Vaginal bleeding and pelvic contractions today Findings: Viable intrauterine single fetus with single amniotic sac presentation cephalic Cardiac motion 153 BPM Placenta fundal grade 0 Umbilical cord insertion seen Amniotic fluid index 12.8 cm Right ovary 3.1 cm arterial flow Left ovary 3.0 cm arterial flow. Composite estimated gestational age based on BPD, head circumference, abdominal circumference, femur length is 22 weeks 1 day Estimated weight 462.8 g. Survey of intracranial anatomy, spinal anatomy, abdominal anatomy, four-chamber heart performed with no abnormalities identified. Impression: Viable intrauterine gestation cephalic presentation.
[2024-09-04 02:49] LABS: Collection Type, Urine Clean Catch
[2024-09-04 03:04] LABS: Bacteria,Urine Rare; Bilirubin,Urine Negative (Negative); Blood,Urine 1+ (Negative); Clarity,Urine Clear (Clear/Hazy); Color,Urine Colorless (Lt Yel-Yel); Glucose, Urine Negative (Negative); Ketones,Urine Negative (Negative); Leukocyte Esterase,Urine Positive (Negative); Nitrite,Urine Negative (Negative); Protein,Urine Negative (Neg - Trace); RBC,Urine < 1 /hpf (0-3); Specific Gravity,Urine 1.004 (1.001-1.035); Squamous Epithelial Cell,Urine 2 /hpf (0-5); Urobilinogen,Urine Negative mg/dL (0.0-1.0); WBC,Urine 1 /hpf (0-5)
--- NOTE | 2024-09-04 03:20 | XR_ITS ---
Examination: Transvaginal pelvic sonography Limited TECHNIQUE: Limited transvaginal sonographic images pelvis INDICATIONS: Pelvic contractions and vaginal bleeding today, unknown cervical length Date and time: September 04, 2024 0409 hours FINDINGS: Cervix 3.5 cm closed Subchorionic hemorrhage above the cervix 2.7 cm in length IMPRESSION: 2.7 x 0.6 cm subchorionic hemorrhage
--- NOTE | 2024-09-04 04:55 | PRELIM_ITS ---
Obstetric ultrasound - Limited. September 04, 2024 at 0409 hours Clinical history: Cervical length. Comparison: No prior study is available for comparison. Findings: Cervical length measures 3.5 cm, which is within normal limits. A small subchorionic collection, measuring 2.7 cm. Impression: Cervical length is satisfactory. A small subchorionic collection, measuring 2.7 cm. Recommend follow-up. Please refer to the report on the ultrasound obstetric submitted separately. Report Electronically Signed By: Esteban Adair 09/04/2024 4:54:32 AM [EST]
--- NOTE | 2024-09-04 04:59 | PRELIM_ITS ---
Obstetric ultrasound. September 04, 2024 at 0342 hours Clinical history: Contractions. Comparison: No prior study is available for comparison. Findings: There is a gravid uterus with a live fetus in cephalic presentation of mean gestational age 22 weeks and 1 day (by biometry). cardiac activity is present at a heart rate of 153 beats per minute. The placenta is fundal in location, maturity grade 0. There is no evidence of placenta previa or retroplacental hemorrhage. Amniotic fluid is adequate (MANAV = 12.8 cm). Estimated weight is 462.8 grams ?? 68 grams. Estimated due date by ultrasound is . Cervical length measures 3.5 cm, which is within normal limits. Impression: Gravid uterus with a single live fetus in cephalic presentation of mean gestational age 22 weeks and 1 day. Cervical length is satisfactory. Report Electronically Signed By: Esteban Adair 09/04/2024 4:58:52 AM [EST]
--- NOTE | 2024-09-04 05:40 | ESPR_ITS ---
Documentation for date of: 09/04/24 OB Labor Progress Note Pelvic Exam Amniotic membrane status: Intact Assessment and Plan Comments: Triage Note Joss is a 24yo with SIUP at 22wk presenting to L&D for vaginal spotting and cramping that started in the evening 09/03. No lof. Normal movement. Current : She sees Dr. Addison for PNC, recently started seeing MFM in [place] for co- management Subchorionic hematoma that has been resolving over time from 11cm to 5cm to 3cm (on 08/20) to 2cm (at recent MFM visit per patient) Recently completed abx therapy for UTI Previous pregnancies: 2021 PPROM at 24 weeks with abruption and classical section, infant lived 2-3 weeks before passing in NICU 2023 Abruption with demise at 28 weeks delivered via classical section ROS negative other than what was described above. Vitals wnl, afebrile General: well developed, well nourished, no acute distress, conversant Cardiac: normal heart rate Lungs: breathing without distress Abdomen: soft, gravid, non-tender, no rebound or guarding Extremities: no edema BLE Small area of blood noted on pad. No further bleeding during time in triage. NST: Reassuring for gestational age [place]: ctx q3-4min that fully resolved after 1L LR and terbutaline x1 UA benign Preliminary ultrasound report: SIUP, cephalic, MANAV 12cm, no evidence of placental abruption (no subchorionic hematoma noted), cervical length 3.5cm Assessment: Joss is a 24yo with SIUP at 22wk with high risk having slowly resolving subchorionic hematoma, presenting with spotting and ctx with no evidence of PTL based on cervical length. Had a run of ctx that ceased with 1L LR and terbutaline x1. (Suspect blood from resolving hematoma caused uterine irritability.) Prelim ultrasound shows no evidence of subchorionic hematoma today. Vitals wnl, benign exam. Reassuring status. Plan: -Discussed findings and diagnosis with patient and support person, answered all questions to their apparent satisfaction -Continue routine follow up with OBGYN and MFM as scheduled. -Emphasized this is a very high risk with risk for recurrence of abruption and thus she should come to L&D triage for any concerning symptoms such as bleeding, regular ctx, lof, abdominal pain, decreased movement -Safe for discharge home at this time Sandra Pardees MD
== END 2024-09-04 05:55 | disposition home or self-care (01) ==
PROVIDERS: Admitting Provider Obstetrics & Gynecology; Visit Provider Obstetrics & Gynecology
DX: O47.02 False labor before 37 completed weeks of gestation, second trimester (principal); O46.8X2 Other antepartum hemorrhage, second trimester; Z3A.22 22 weeks gestation of pregnancy
CPT/HCPCS: 59025; 59899; 76805; 76815; 81001

== ENCOUNTER 2024-09-09 21:01 | Inpatient (IN) | payer MEDICAID, SELFPAY ==
[2024-09-09] VITALS (20 sets, daily range): BP systolic 109–118; BP diastolic 50–67; PULSE 71–127; RESP 17–98; TEMP 36.7–37.2; O2SAT 90–100; BMI 24.7
[2024-09-09] MEDS: RINGERS LACTATED 1000 ML 1,000 ML 999 ML IV (21:27)
[2024-09-09] MEDS: CITRIC ACID/SODIUM CITR 15 ML UDC (BICITRA) 30 ML PO (21:27)
[2024-09-09 21:40] LABS: ROM Kit Lot # 57807112; ROM Swab Mixed By: MARTB3; Rupture of Fetal Membranes Positive (Negative); Swb Mxed in Solvent 1 min? Yes
[2024-09-09] MEDS: BETAMET ACET/BETAMET NA PH (Celestone) 6 MG/ML VIAL 12 MG IM (21:48)
[2024-09-09] MEDS: FAMOTIDINE INJ 10 MG/ML VIAL 2 ML 20 MG IV (21:59)
[2024-09-09] MEDS: ceFAZolin/D5W 2 GM IV 2 GM/100 ML BAG IV (21:59)
[2024-09-09] MEDS: RINGERS LACTATED 1000 ML 1,000 ML 100 ML IV (22:00)
--- NOTE | 2024-09-09 22:03 | PD.LDHP ---
Documentation for date of: 09/09/24 OB Labor/Induct. HPI History of Present Illness : 3 Term pregnancies: 0 pregnancies: 2 Living children: 0 History of Abortions: Spontaneous and Elective: 0 History of sections: Yes History of : No History of present illness: 24 y/p IUP 23w1d with vaginal bleeding and leaking. Prior Classical C/S x 2 in 2021 at @ 24 weeks pprom/placenta abruption in [place] c/s 2023 @28 weeks placental abruption still in [place]. Both sections were classical sections Patient is seeing MFM at [facility] every 2 weeks for ultrasounds. subchorionic hemorrhage this with multiple MIU evaluations for vaginal bleeding. Amniosure positive. Past Medical History Surgical History SURGICAL: Positive Section Meds Home Medications and Allergies Home Medications ?Medication ?Instructions ?Recorded ?Confirmed ?Type sertraline 25 mg tablet 15 mg PO .q day 08/20/24 09/04/24 History vits no.130-ferrous fum 1 tab PO QDAY 09/04/24 09/04/24 History 27 mg iron-folic acid 800 mcg tablet ( Vitamin) Allergies Allergy/AdvReac Type Severity Reaction Status Date / Time cephalexin (From Keflex) Allergy Hallucinati Verified 09/04/24 01:59 ng OB Exam Physical Exam Vital signs: Pulse BP Pulse Ox 95 117/67 100 09/09/24 21:12 09/09/24 21:12 09/09/24 21:53 Routine Exam Comments: Persistent vaginal bleeding. OB Results Labs 09/09/24 21:35 09/09/24 21:35 Impressions Impression: IUP23 weeks. PPROM Placenta Abruption History of Classical C/S x 2 Refuses General Anesthesia Emergency Repeat C/S Case reviewed with Jean-Pierre Polanco SKATE BOARDER Case reviewed with Dr. Gonzalez Informed consent obtained patient made aware of the risk, complications alternatives and benefits of the proposed procedure and she agrees. Recommended General Anesthesia as faster to deliver the baby but patient declines general.
[2024-09-09 22:16] LABS: Collection Type, Urine Clean Catch; Squamous Epithelial Cell,Urine 0 /hpf (0-5)
[2024-09-09 22:21] LABS: Basophils # (Auto) 0.1 Thou/mm3 (0.0-0.2); Basophils % (Auto) 0 % (0-2.5); Eosinophils # (Auto) 0.2 Thou/mm3 (0.0-0.5); Eosinophils % (Auto) 1 % (0-10); Hematocrit 26.7 % (36.0-46.0); Hemoglobin 10.1 g/dL (12.0-16.0); Immature Granulocytes % (Auto) 4 % (0-0); Immature Granulocytes Auto 0.72 Thou/mm3 (0.00-0.00); Lymphocytes # (Auto) 2.5 Thou/mm3 (1.0-4.8); Lymphocytes % (Auto) 14 % (10-50); Mean Corpuscular HGB Conc 37.8 g/dl (31.0-37.0); Mean Corpuscular Hemoglobin 34.7 pg (25.0-35.0); Mean Corpuscular Volume 92 fL (80-100); Monocytes # (Auto) 1.4 Thou/mm3 (0.0-0.8); Monocytes % (Auto) 8 % (0-12); Neutrophils # (Auto) 12.7 Thou/mm3 (1.8-7.7); Neutrophils % (Auto) 72 % (37-80); Nucleated Red Blood Cell % 0 /100 WBC (0); Platelet Count 229 Thou/mm3 (140-440); Red Blood Count 2.91 Miln/mm3 (4.00-5.20); White Blood Count 17.6 Thou/mm3 (3.6-11.0)
[2024-09-09 22:24] LABS: Bilirubin,Urine Negative (Negative); Blood,Urine 2+ (Negative); Clarity,Urine Clear (Clear/Hazy); Color,Urine Colorless (Lt Yel-Yel); Glucose, Urine Negative (Negative); Ketones,Urine Negative (Negative); Leukocyte Esterase,Urine Positive (Negative); Nitrite,Urine Negative (Negative); Protein,Urine Negative (Neg - Trace); RBC,Urine 6 /hpf (0-3); Urobilinogen,Urine Negative mg/dL (0.0-1.0); WBC,Urine < 1 /hpf (0-5)
[2024-09-09 22:52] LABS: Albumin, Serum 3.5 gm/dL (3.5-5.0); Albumin/Globulin Ratio 1.3 (1.2-2.2); Alkaline Phosphatase 88 U/L (46-116); Anion Gap 8 (7-16); Aspartate Amino Transferase 15 U/L (0-34); BUN/Creatinine Ratio 20 Ratio (12-20); Bilirubin,Total 0.4 mg/dL (0.3-1.2); Blood Urea Nitrogen 10 mg/dL (9-23); Calcium 8.2 mg/dL (8.3-10.6); Calcium (Corrected) 8.6 mg/dL (8.5-10.1); Carbon Dioxide 23.8 mMol/L (20.0-31.0); Chloride 106 mMol/L (98-107); Creatinine (Component) 0.5 mg/dL (0.6-1.3); Estimated Creatinine Clearance 158.3 mL/min (>60); Globulin 2.6 gm/dL (2.3-3.5); Glucose 83 mg/dL (74-106); LDH (Lactate Dehydrogenase) 178 U/L (120-246); Osmolality,Calculated 273 (275-295); Potassium 3.4 mMol/L (3.4-5.1); Sodium 138 mMol/L (136-145); Total Protein 6.1 gm/dL (5.7-8.2); Uric Acid 3.7 mg/dL (3.1-7.8); eGFR > 60 See Note
[2024-09-09 22:55] LABS: Fibrinogen 316 mg/dL (175-375); INR 0.9 (0.9-1.3); Partial Thromboplastin Time 25.6 Seconds (22.0-36.0); Prothrombin Time 10.1 Seconds (9.0-12.2)
[2024-09-09 22:57] LABS: Alanine Aminotransferase < 7 U/L (10-49)
--- NOTE | 2024-09-09 23:02 | ESDS_ITS ---
DS: Providers Provider Date of admission: 09/09/24 21:01 Primary care physician: Physician No Primary/Family Admitting Provider: Philippe Howell MD Attending Provider on Admission: Philippe Howell MD Attending Provider on DC: Philippe Howell MD Discharging Provider: Philippe Howell MD DS: Diagnosis Discharge Diagnosis (1) premature rupture of membranes (PPROM) delivered, current hospitalization: Status: Acute (2) Placental abruption in second trimester: Status: Acute (3) Delivery by classical section: Status: Acute Problem List Completed Was Problem List Reviewed/Reconciled?: Yes Summary/Hosp Course Brief History: 24 y/p IUP 23w1d came in for vaginal bleeding and leaking bloody fluid. Notified by Danielle PAGE for first time at 21:27 that patient was in Triage with leaking bloody fluid with a positive Amniosure and tachycardia in the 170's with minimal variability. Orders were given for Betamethasone and STAT OB US and T and C for 2 u pRBCs. While driving in I was updated about the heaviness of the bleeding and tracing and an Emergency C/S was called at 21:45. I arrived at 21:50 and evaluated the patient. I discussed the case with Dr Lisa Waller and Jean-Pierre Lenz CRNA. The patient refused general anesthesia despite our urging that we could deliver the baby more rapidly with general than spinal. Baby delivered at 22:24 under spinal anesthesia via Classical Delivery. Placental abruption noted and no amniotic fluid seen. Malpresentation. Pelvic Adhesions. See Machinist 2Nd Shift Notes. PMHx. Prior Classical C/S x 2 in 2021 at @ 24 weeks pprom/placenta abruption in [place] c/s 2023 @28 weeks placental abruption still in [place]. Both sections were classical sections. Care with Dr. Addison at [facility]. Patient is seeing MFM at [facility] every 2 weeks for ultrasounds. Has subchorionic hemorrhage this with multiple MIU evaluations for vaginal bleeding. Peripartum Data Delivery Method: Classical Procedures: Lysis of adhesions. 1: Gender: Female Disposition of : other (See Machinist 2Nd Shift Notes. ) Time Spent with Patient Time attestation: Exam Vital Signs Temp Pulse Resp BP Pulse Ox 99.0 F 95 18 117/67 100 09/09/24 21:12 09/09/24 21:12 09/09/24 21:12 09/09/24 21:12 09/09/24 21:53 Discharge Plan Plan Patient Disposition: HOME (Self Care) Patient condition on transfer: Stable Prescriptions/Referrals Prescriptions/Med Rec: New hydrocodone-acetaminophen 5-325 mg tablet 1 tab PO Q6H MDD 4 PRN (Reason: pain) Qty: 20 0RF Rx Instructions: Had a Delivery ibuprofen 800 mg tablet 800 mg PO Q6H PRN (Reason: pain) Qty: 30 0RF Continued sertraline 25 mg tablet 15 mg PO .q day Patient Comments: TAKE 1 TABLET BY MOUTH ONCE DAILY Vitamin 27 mg iron- 800 mcg tablet 1 tab PO QDAY Referrals: No Primary/Family,Physician [Primary Care Provider] - Patient/Caregiver Discharge Instructions Discharge Activity: activity as tolerated Other Discharge Activity Instructions:: Follow up with Primary OB provider in 1 week. Print Language: Azerbaijani Stand Alone Forms: Anya Award Info., Patient Portal Info Letter, Work/Release Restrictions Planned Discharge Date 09/11/24
--- NOTE | 2024-09-09 23:09 | OBDSUM_ITS ---
Data () Data Hx Section: Yes (CLASSICAL SECTION X2) : 3 Term: 0 : 2 Livin Abortions: Spontaneous & Theraputic: 0 Delivery Data () Labor Data ROM date: 09/09/24 Delivery Data EDC: 01/05/25 EDC calculated by:: LMP/early US confirmation Date of arrival to unit: 09/09/24 Gestational age (weeks): 23 Gestational age (days): 1 Placenta delivery date: 09/09/24 Delivered by: Philippe Howell Financial Planning Consultant at delivery: Yes Delivery Method Delivery method: Classical Presentation: Transverse Anesthesia Type Anesthesia Type: Spinal (Pt refused general anesthesia) Placenta Placenta delivery description: Manual Removal Placenta Disposition: Sent to Pathology Cord blood sent to lab: No EBL Estimated blood loss (ml): 500 Additional Procedures Lysis of adhesions Complications Complications: None [place] Data () Data [place]'s gender: Female weight (gms): 15.697 oz 1 minute: 0 5 minutes: 0 Additional Comments Additional comments: 445 grams
--- NOTE | 2024-09-09 23:15 | PC.NURSE ---
Primary RN at bedside with patient at beginning of recovery from section. Patient inquires if she can still see the baby. RN informs patient that she may see the baby and will go to NICU to let the NICU nurse know that patient wants to see the baby.
--- NOTE | 2024-09-09 23:17 | PC.NURSE ---
Primary nurse for patient in NICU to check the status of bringing baby to bedside so that patient may hold and allen, as requested. Upon first glance, baby moving and breathing slowly as well as making moaning sounds. RN asks NICU nurse if administrative underwriter was aware of baby's movements, to which NICU nurse stated he was aware. NICU nurse states that baby has agonal breathing at the moment. RN inquires to NICU nurse if baby may be brought to the room to be with mother of baby. NICU nurse states not right now. RN then calls MD Gonzalez and informs him that patient is requesting her baby to be brought into room to be with mother and that if baby is agonal breathing, perhaps patient may want baby to be with her while passing. RN then requests MD Gonzalez to come to bedside of mother in order to provide education and what is to be expected when baby comes into room. states en route.
[2024-09-10] VITALS (14 sets, daily range): BP systolic 90–119; BP diastolic 33–73; PULSE 69–89; RESP 14–27; TEMP 36.3–36.8; O2SAT 97–100; BMI 24.7
--- NOTE | 2024-09-10 00:05 | PC.NURSE ---
MD Gonzalez and Olivia Daly RN, at bedside with baby so that patient may hold baby. Baby still moving, breathing, and moaning. Patient made aware that no resuscitation measures may be done for baby due to criteria. Mother and father of baby (patient and significant other) state understanding. All questions answered by MD Gonzalez. Mother wishes to hold baby during the time of passing at this time.
--- NOTE | 2024-09-10 00:34 | PC.NURSE ---
At 2224 09/09/24, delivered a severe premature via section, to radiant warmer, no respiratory effort and heart rate noted despite stimulations, Dr. Gonzalez present at the delivery, apgars at 1 minute zero then [address] Gonzalez explained to parents the baby's status. Baby weighed 445 grams and other measurements taken.
[2024-09-10] MEDS: KETOROLAC INJ 30 MG/ML VIAL IVP ×3 (01:38→18:39)
[2024-09-10 01:41] LABS: Amphetamine/Metham Scrn,Ur OB Negative (Negative); Benzoylecgonine Screen, Ur OB Negative (Negative); Opiate Screen,Urine OB Negative (Negative); THC Screen,Urine OB Positive (Negative); THC U Confirm* See Sep Rpt
[2024-09-10] MEDS: OXYTOCIN in NS 20 units 20 UNIT/1,000 ML BAG 125 UNIT IV ×2 (01:58→09:28)
[2024-09-10 03:22] LABS: HIV (1&2) Antibody Rapid Non-Reactive
[2024-09-10 05:33] LABS: Basophils # (Auto) 0.1 Thou/mm3 (0.0-0.2); Basophils % (Auto) 0 % (0-2.5); Eosinophils % (Auto) 0 % (0-10); Hematocrit 30.9 % (36.0-46.0); Hemoglobin 11.8 g/dL (12.0-16.0); Immature Granulocytes % (Auto) 3 % (0-0); Immature Granulocytes Auto 0.88 Thou/mm3 (0.00-0.00); Lymphocytes # (Auto) 1.5 Thou/mm3 (1.0-4.8); Lymphocytes % (Auto) 5 % (10-50); Mean Corpuscular HGB Conc 38.2 g/dl (31.0-37.0); Mean Corpuscular Volume 92 fL (80-100); Monocytes # (Auto) 0.4 Thou/mm3 (0.0-0.8); Monocytes % (Auto) 2 % (0-12); Neutrophils # (Auto) 25.8 Thou/mm3 (1.8-7.7); Neutrophils % (Auto) 90 % (37-80); Nucleated Red Blood Cell % 0 /100 WBC (0); Platelet Count 254 Thou/mm3 (140-440); RDW Standard Deviation 47.9 fL (36.4-46.3); Red Blood Count 3.37 Miln/mm3 (4.00-5.20); White Blood Count 28.7 Thou/mm3 (3.6-11.0)
[2024-09-10 08:32] LABS: Chlamydia trachomatis PCR Negative (Not Detect); Neisseria Gonorrhoeae DNA PCR Negative (Not Detect); Trichomonas Negative (Negative)
[2024-09-10] MEDS: DOCUSATE SOD 100 MG CAPSULE PO (09:28)
--- NOTE | 2024-09-10 09:59 | PC.SS ---
SS met with patient at bedside due to referral for demise. Role and purpose of today's contact was explained to patient. Patient stated this was her 3rd loss. She reported being diagnosed with depression and anxiety. Patient stated she takes 25mg of Sertraline daily. Patient stated she is not connected to mental health services at this time and declined assistance with referral. Patient agreed to follow up with Dr. Addison and Joseline at [facility] to initiate mental health support. Patient denied SI or thoughts of self-harm. Patient stated her support system consists of her parents, significant other Ron Vences, and siblings. Patient disclosed processing loss in waves. SS validated patient's emotions and encouraged patient to request SS if a need arises. Patient disclosed having history of recreational THC use. SS provided patient Community Resources document and explained Bereavement support services available.
[2024-09-10] MEDS: SERTRALINE HCL 25 MG TABLET PO (10:14)
--- NOTE | 2024-09-10 10:51 | PD.LDPPPRG ---
Subjective Subjective Interval history: POD #1 . Patient with her mother at bedside. Patient reports adequate pain relief. No excessive vaginal bleeding or dizziness or lightheadedness. She is tolerating a regular diet without nausea and vomiting. Alcantara in place with adequate urine output and clear urine draining. She has been on Sertraline 25 mg daily so we will continue it. She is passing flatus. She is asking for something to help her sleep. Exam Vital Signs Temp Pulse Resp BP Pulse Ox O2 Del Method 97.9 F 69 17 117/72 100 Room Air 09/10/24 08:02 09/10/24 08:02 09/10/24 08:02 09/10/24 08:02 09/10/24 08:02 09/10/24 08:02 Routine Respiratory Exam Comments: CTA B/L Routine Cardiovascular Exam Comments: RRR Routine Abdominal Exam Comments: Dressing dry and intact. Fundus firm. Nondistended. Routine Extremities Exam Comments: Nontender Objective Labs 09/10/24 05:05 09/09/24 21:35 Labs: Laboratory Results - last 24 hr 09/09/24 09/09/24 09/10/24 21:22 21:35 00:00 WBC 17.6 H RBC 2.91 L Hgb 10.1 L Hct 26.7 L MCV 92 MCH 34.7 MCHC 37.8 H RDW Std Deviation 48.0 H Plt Count 229 Neut % (Auto) 72 Lymph % (Auto) 14 Dixie % (Auto) 8 Eos % (Auto) 1 Baso % (Auto) 0 Neut # (Auto) 12.7 H Lymph # (Auto) 2.5 Dixie # (Auto) 1.4 H Eos # (Auto) 0.2 Baso # (Auto) 0.1 Immature Gran # (Auto) 0.72 H Absolute Nucleated RBC 0.00 Immature Gran % 4 H Nucleated RBC % 0 PT 10.1 INR 0.9 APTT 25.6 Fibrinogen 316 Sodium 138 Potassium 3.4 Chloride 106 Carbon Dioxide 23.8 Anion Gap 8 BUN 10 Creatinine 0.5 L Estim Creat Clear Calc 158.3 eGFR > 60 BUN/Creatinine Ratio 20 Glucose 83 Calculated Osmolality 273 L Uric Acid 3.7 Calcium 8.2 L Corrected Calcium 8.6 Total Bilirubin 0.4 AST 15 ALT < 7 L Alkaline Phosphatase 88 Lactate Dehydrogenase 178 Total Protein 6.1 Albumin 3.5 Globulin 2.6 Albumin/Globulin Ratio 1.3 Ur Collection Type Clean Catch Urine Color Colorless A Urine Clarity Clear Urine pH 7.0 Ur Specific [place] 1.010 Urine Protein Negative Urine Glucose (UA) Negative Urine Ketones Negative Urine Blood 2+ A Urine Nitrite Negative Urine Bilirubin Negative Urine Urobilinogen (Auto) Negative Ur Leukocyte Esterase Positive Urine RBC 6 H Urine WBC < 1 Ur Squamous Epith Cells 0 Urine Bacteria None Membrane Rupture Positive A Urine Opiates Screen Negative U Amphetamin/Meth Scrn Negative U Cocaine Metab Screen Negative U Marijuana (THC) Screen Positive A Chlam trachomat DNA PCR Negative HIV 1&2 Antibody Rapid Non-Reactive N.gonorrhoeae DNA (PCR) Negative Trichomonas DNA Probe Negative Blood Type B Positive Antibody Screen NEGATIVE Crossmatch See Detail Blood Bank Wristband ID Yes 09/10/24 05:05 WBC 28.7 H D RBC 3.37 L Hgb 11.8 L Hct 30.9 L MCV 92 MCH 35.0 MCHC 38.2 H RDW Std Deviation 47.9 H Plt Count 254 Neut % (Auto) 90 H Lymph % (Auto) 5 L Dixie % (Auto) 2 Eos % (Auto) 0 Baso % (Auto) 0 Neut # (Auto) 25.8 H Lymph # (Auto) 1.5 Dixie # (Auto) 0.4 Eos # (Auto) 0.0 Baso # (Auto) 0.1 Immature Gran # (Auto) 0.88 H Absolute Nucleated RBC 0.00 Immature Gran % 3 H Nucleated RBC % 0 PT INR APTT Fibrinogen Sodium Potassium Chloride Carbon Dioxide Anion Gap BUN Creatinine Estim Creat Clear Calc eGFR BUN/Creatinine Ratio Glucose Calculated Osmolality Uric Acid Calcium Corrected Calcium Total Bilirubin AST ALT Alkaline Phosphatase Lactate Dehydrogenase Total Protein Albumin Globulin Albumin/Globulin Ratio Ur Collection Type Urine Color Urine Clarity Urine pH Ur Specific [place] Urine Protein Urine Glucose (UA) Urine Ketones Urine Blood Urine Nitrite Urine Bilirubin Urine Urobilinogen (Auto) Ur Leukocyte Esterase Urine RBC Urine WBC Ur Squamous Epith Cells Urine Bacteria Membrane Rupture Urine Opiates Screen U Amphetamin/Meth Scrn U Cocaine Metab Screen U Marijuana (THC) Screen Chlam trachomat DNA PCR HIV 1&2 Antibody Rapid N.gonorrhoeae DNA (PCR) Trichomonas DNA Probe Blood Type Antibody Screen Crossmatch Blood Bank Wristband ID Impressions Impression: POD #1 s/p C/S for placental abruption and possible prolonged PPROM at 23w1d Remove dressing, D/C Alcantara, encourage ambulation, D/C IV , resume Sertraline 25 mg po daily. Ambien prn sleep. Social Service Consult I reviewed with the patient and her mother the intra-operative findings. I explained that PPROM, Prior C/S x 2, short inter- interval and smoking are risk factors for placental abruption. It is not clear but the patient thinks she might have been leaking fluid for a few days. If so, ascending infection can contribute to placental abruption. We discussed the recommendation for referral for preconception counselling after her 6 week visit. Discouraged smoking in future pregnancies and advised to avoid getting for at least 18 months. Aware of the increased risk of placenta acreta spectrum with each subsequent . Assessment & Plan Time Spent With Patient Time: Total time spent is greater than 50% in coordination of care (as documented) at patient's floor/unit and/or counseling patient:
[2024-09-10] MEDS: SIMETHICONE 80 MG CHEW PO (12:42)
[2024-09-10] MEDS: ZOLPIDEM 5 MG TABLET 10 MG PO (13:38)
[2024-09-10] MEDS: ALPRazoLAM 0.25 MG TABLET 0.5 MG PO (19:57)
[2024-09-11 00:03] VITALS: BP 118/70; PULSE 67; RESP 16; TEMP 36.5; O2SAT 98
[2024-09-11 00:58] LABS: MHATP/TP-PA* See Sep Rpt; Syphilis Reactive (Nonreactive)
[2024-09-11] MEDS: HYDROcodone/APAP 5/325 TABLET 1 TAB PO ×2 (02:48→07:20)
--- NOTE | 2024-09-11 02:53 | PC.NURSE ---
informed DR Howell of pts reactive syphilis lab. no new orders received. did talk with pt over the phone regarding reactive test.
[2024-09-11 03:00] VITALS: BP 117/65; PULSE 73; RESP 18; TEMP 36.7; O2SAT 100
[2024-09-11 06:55] LABS: Basophils # (Auto) 0.1 Thou/mm3 (0.0-0.2); Basophils % (Auto) 0 % (0-2.5); Eosinophils % (Auto) 0 % (0-10); Hematocrit 29.4 % (36.0-46.0); Hemoglobin 11.2 g/dL (12.0-16.0); Immature Granulocytes % (Auto) 3 % (0-0); Immature Granulocytes Auto 0.51 Thou/mm3 (0.00-0.00); Lymphocytes % (Auto) 16 % (10-50); Mean Corpuscular HGB Conc 38.1 g/dl (31.0-37.0); Mean Corpuscular Hemoglobin 35.7 pg (25.0-35.0); Mean Corpuscular Volume 94 fL (80-100); Monocytes # (Auto) 1.6 Thou/mm3 (0.0-0.8); Monocytes % (Auto) 9 % (0-12); Neutrophils # (Auto) 13.8 Thou/mm3 (1.8-7.7); Neutrophils % (Auto) 72 % (37-80); Nucleated Red Blood Cell % 0 /100 WBC (0); Platelet Count 222 Thou/mm3 (140-440); RDW Standard Deviation 50.1 fL (36.4-46.3); Red Blood Count 3.14 Miln/mm3 (4.00-5.20)
[2024-09-11] MEDS: SIMETHICONE 80 MG CHEW PO (07:20)
--- NOTE | 2024-09-11 08:43 | PD.LDPPPRG ---
Subjective Subjective Interval history: Delivery type: Postop day 2 status post classical for 23-week PPROM and abruption, baby in NICU Patient doing well this morning. No acute complaints. Ambulating, tolerating p.o. and voiding without difficulty. HTN/Pre-Eclampsia screen: No chest pain, shortness of breath, headache, visual changes, epigastric or right upper quadrant pain. Breast-feeding, lochia diminishing. Bowel: Flatus+/ BM+ UOP: Adequate Exam Vital Signs Temp Pulse Resp BP Pulse Ox O2 Del Method 98.0 F 73 18 117/65 100 Room Air 09/11/24 03:00 09/11/24 03:00 09/11/24 03:00 09/11/24 03:00 09/11/24 03:00 09/11/24 03:00 Constitutional Constitutional: no acute distress Routine HEENT Exam Head: Present normocephalic and atraumatic Eye: Present EOMI and PERRL ENT: Present mucous membranes moist Routine Neck Exam Neck: Present supple and trachea midline Routine Respiratory Exam Respiratory: Present chest non-tender, lungs clear, normal breath sounds and no resp distress Routine Cardiovascular Exam Cardiovascular: Present RRR Routine Abdominal Exam Abdominal: Present soft and normoactive bowel sounds Routine Extremities Exam Extremities: Present full ROM Routine Skin Exam Skin: Present intact, dry and warm Routine Neurological Exam Neurological: Present alert, oriented X3 and CN II-XII intact Routine Psychiatric Exam Psychiatric: Present normal affect and normal thought process Objective Labs 09/11/24 05:33 09/09/24 21:35 Labs: Laboratory Results - last 24 hr 09/09/24 09/11/24 21:35 05:33 WBC 19.0 H D RBC 3.14 L Hgb 11.2 L Hct 29.4 L MCV 94 MCH 35.7 H MCHC 38.1 H RDW Std Deviation 50.1 H Plt Count 222 D Neut % (Auto) 72 Lymph % (Auto) 16 [place] % (Auto) 9 Eos % (Auto) 0 Baso % (Auto) 0 Neut # (Auto) 13.8 H Lymph # (Auto) 3.0 [place] # (Auto) 1.6 H Eos # (Auto) 0.0 Baso # (Auto) 0.1 Immature Gran # (Auto) 0.51 H Absolute Nucleated RBC 0.00 Immature Gran % 3 H Nucleated RBC % 0 Syphilis Serology Reactive A Assessment & Plan Problem List (1) premature rupture of membranes (PPROM) delivered, current hospitalization: Status: Acute (2) Placental abruption in second trimester: Status: Acute (3) Delivery by classical section: Status: Acute Assessment and plan: PPD/POD#2 1. Continue routine care 2. Transition to PO meds. 3. Encourage to ambulate/ breast-feed 4. Anticipate discharge home today. Time Spent With Patient Time: Total time spent is greater than 50% in coordination of care (as documented) at patient's floor/unit and/or counseling patient:
--- NOTE | 2024-09-11 08:44 | ESDS_ITS ---
DS: Providers Provider Date of admission: 09/09/24 22:14 Primary care physician: Physician No Primary/Family Admitting Provider: Philippe Howell MD Attending Provider on Admission: Monty Funes MD Attending Provider on DC: Monty Funes MD Discharging Provider: Monty Funes MD DS: Diagnosis Discharge Diagnosis (1) Delivery by classical section: Status: Acute (2) premature rupture of membranes (PPROM) delivered, current hospitalization: Status: Acute (3) Placental abruption in second trimester: Status: Acute Problem List Completed Was Problem List Reviewed/Reconciled?: Yes Summary/Hosp Course Brief History: 24 y/p IUP 23w1d came in for vaginal bleeding and leaking bloody fluid. Notified by Danielle PAGE for first time at 21:27 that patient was in Triage with leaking bloody fluid with a positive Amniosure and tachycardia in the 170's with minimal variability. Orders were given for Betamethasone and STAT OB US and T and C for 2 u pRBCs. While driving in I was updated about the heaviness of the bleeding and tracing and an Emergency C/S was called at 21:45. I arrived at 21:50 and evaluated the patient. I discussed the case with Dr Lisa Waller and Jean-Pierre Lenz CRNA. The patient refused general anesthesia despite our urging that we could deliver the baby more rapidly with general than spinal. Baby delivered at 22:24 under spinal anesthesia via Classical Delivery. Placental abruption noted and no amniotic fluid seen. Malpresentation. Pelvic Adhesions. See High School Foreign Language Tutor Notes. PMHx. Prior Classical C/S x 2 in 2021 at @ 24 weeks pprom/placenta abruption in [place] c/s 2023 @28 weeks placental abruption still in [place]. Both sections were classical sections. Care with Dr. Addison at [facility]. Patient is seeing MFM at [facility] every 2 weeks for ultrasounds. Has subchorionic hemorrhage this with multiple MIU evaluations for vaginal bleeding. Peripartum Data Delivery Method: Classical Episiotomy Description: None Procedures: Procedures Operation Date: 09/09/24 22:08 Actual Procedure Side Surgeon p in OB Not Applicable Philippe Howell MD Time Spent with Patient Time attestation: Total time spent providing and/or coordinating discharge services: Exam Vital Signs Temp Pulse Resp BP Pulse Ox O2 Del Method 98.0 F 73 18 117/65 100 Room Air 09/11/24 03:00 09/11/24 03:00 09/11/24 03:00 09/11/24 03:00 09/11/24 03:00 09/11/24 03:00 Discharge Plan Plan Patient Disposition: HOME (Self Care) Patient condition on transfer: Stable Prescriptions/Referrals Prescriptions/Med Rec: New hydrocodone-acetaminophen 5-325 mg tablet 1 tab PO Q6H MDD 4 PRN (Reason: pain) Qty: 20 0RF Rx Instructions: Had a Delivery ibuprofen 800 mg tablet 800 mg PO Q6H PRN (Reason: pain) Qty: 30 0RF Continued sertraline 25 mg tablet 15 mg PO .q day Patient Comments: TAKE 1 TABLET BY MOUTH ONCE DAILY Vitamin 27 mg iron- 800 mcg tablet 1 tab PO QDAY Referrals: Shay Addison MD [Referring Provider] - (See your primary OB provider within 1 week for postop check) No Primary/Family,Physician [Primary Care Provider] - Patient/Caregiver Discharge Instructions Discharge Activity: activity as tolerated Other Discharge Activity Instructions:: Follow up with Primary OB provider in 1 week. Print Language: Maori Stand Alone Forms: Anya Award Info., Patient Portal Info Letter, Work/Release Restrictions, DC from Surgery Discharge Order Discharge Orders: Discharge (Routine); Ordered 09/11/24 Ordered By: Monty Funes Planned Discharge Date 09/11/24
[2024-09-11 08:50] VITALS: BP 122/70; PULSE 78; RESP 17; TEMP 36.7; O2SAT 98
[2024-09-11] MEDS: SERTRALINE HCL 25 MG TABLET PO (09:11)
[2024-09-11] MEDS: DOCUSATE SOD 100 MG CAPSULE PO (09:11)
--- NOTE | 2024-09-11 10:39 | PC.NURSE ---
Patient cleared by social science teacher ok to discharge
--- NOTE | 2024-09-11 10:55 | PC.CC ---
Addendum entered by Kateryna Quintanilla 09/11/24 11:18: [facility] Screener Caro Contrreas [phone] contacted LAY Quintanilla to start the SCAR. ASW provided the information on the positive THC toxicology for the pt and answered all questions the screener requested. Screener determined that the report will be not be investigated due to the infant passing away and the mother not having any other children in her care. Addendum entered by Kateryna Quintanilla 09/11/24 11:08: Per [facility] on reporting positive THC during delivery, ASW called [facility] and attempted to report the positive THC toxicology, but the screener took the message and said someone would call back. As of this writing, no one from [facility] has returned the call. Original Note: LAY Quintanilla met with the pt at bedside in [facility] Room 469. Upon arrival, ASW addressed introduced myself and provided my role and pt understood. Present was pts significant other Ronrani Berumenes. Graphic Specialist asked pt if it was okay to speak freely in front of her significant other and pt agreed. Graphic Specialist went on to offer community resources and mental health services due to the loss of the pts infant. Pt stated she was previousl connected to [facility] Dr. Addison but will reconnect again upon d/c. Graphic Specialist mentioned the positive THC and the pt stated she uses it for anxiety and depression and reported it is recreational use. Graphic Specialist informed pt that since it was brought to the attention of SS that we must address it, which was delivered in the most delicate way due to the current situation. Pt understood and was cooperative. ASW provided community resources and MH resources.
[2024-09-12 01:39] LABS: Rubella, IgG Antibody Reactive (Immune)
--- NOTE | 2024-09-12 07:37 | ESOP_ITS ---
RE: PRABHA BELL : 2000 DATE OF OPERATION: 09/09/2024 PREOPERATIVE DIAGNOSES: 1. Intrauterine at 23 weeks and 1 day. 2. premature rupture of membranes. 3. Placental abruption. 4. Previous classical delivery x2. POSTOPERATIVE DIAGNOSES: 1. Intrauterine at 23 weeks and 1 day. 2. premature rupture of membranes. 3. Placental abruption. 4. Previous classical delivery x2. PROCEDURE PERFORMED: Repeat classical delivery via Pfannenstiel skin incision. SURGEON: Philippe Howell DO ALMOND HULLER: JAMEE Rader ANESTHESIA: Spinal. ANESTHESIOLOGIST: Ary Polanco CRNA ESTIMATED BLOOD LOSS: 500 mL. COMPLICATIONS: None. COUNTS: Correct. PATHOLOGY: Placenta. FINDINGS: 445g, Transverse presentation (see Pediatric notes), placental abruption, oligohydramnios, and pelvic adhesions. DESCRIPTION OF PROCEDURE: After proper informed consent was obtained and the patient was made aware of the risks, complications, alternatives, and benefits of the proposed procedure, the patient refused general anesthesia despite urging the patient to undergo general anesthesia as it would be quicker to deliver her baby, the patient refused. She was taken to the operating room where she was placed on the operating room table and she underwent induction of spinal anesthesia. She was prepped and draped in the usual sterile fashion. Timeout was performed. Pfannenstiel skin incision was made with scalpel carried through the skin to the underlying layer of fascia with the Bovie. The fascia was nicked in the midline. The incision extended bilaterally with the Bovie. The inferior aspect of the fascial incision was grasped with Raoul clamps and elevated. The underlying rectus muscles dissected off with the Bovie. The rectus muscles were at the midline. The peritoneum was identified between 2 Aguillon clamps and entered sharply with the Metzenbaum scissors. The incision was extended superiorly and inferiorly with good visualization of the bladder. The midline uterine incision was made in the uterus and placental abruption noted. No amniotic fluid seen. Fetus transverse delivered atraumatically. The cord was clamped and cut, sent off to the waiting pediatric staff. There was no cord blood to collect due to the placental abruption. The uterus was exteriorized and the placenta was removed and the uterine cavity was cleared of all clots and debris and the uterine incision was repaired with #1-0 chromic catgut suture in a running locking fashion. The second layer of same suture was used to imbricate the first layer and obtained excellent hemostasis. The fundus was firm. The left fallopian tube was adherent to the uterus and the anterior portion of the uterus with filmy adhesions. These adhesions were lysed. The right ovary was adherent to the omentum and these adhesions were also lysed. The uterus was returned to the abdomen. The gutters were cleared of all clots and debris. The peritoneum was closed with 0 chromic catgut suture in running fashion. The muscle was closed with a chromic catgut suture in running fashion. The fascia was closed with 0 Vicryl beginning at each angle, ending in center in running fashion. The subcutaneous tissue was irrigated with normal saline solution, found to be hemostatic and closed with 2-0 chromic catgut suture in running fashion. The skin was closed with 4-0 Monocryl. A Dermabond perineal dressing was applied. A sterile pressure dressing was applied. She tolerated the procedure well. Counts were correct. I discussed with the patient the nature of her condition, intraoperative findings, expectation for recovery. Leather Crafter updating patient and about status of baby (see Peds notes). DT: 23:09:45 TT: 23:39:00 Ref: [id number] - TID: [id number] MTDD
[2024-09-12 10:21] LABS: Hepatitis B Surface Antigen Non Reactive (Non React)
== END 2024-09-11 10:49 | disposition home or self-care (01) | DRG 540 ==
LOC: S4NX 09-11 08:43 → S4SX 09-12 06:26
PROVIDERS: Admitting Provider Specialist; Visit Provider Obstetrics & Gynecology
PROC: (CPT 59514; principal; 2024-09-10 22:15)
DX: O34.212 Maternal care for vertical scar from previous cesarean delivery (principal); O45.92 Premature separation of placenta, unspecified, second trimester; Z3A.23 23 weeks gestation of pregnancy; Z37.0 Single live birth; O42.912 Preterm premature rupture of membranes, unspecified as to length of time between rupture and onset of labor, second trimester; O76 Abnormality in fetal heart rate and rhythm complicating labor and delivery; O98.32 Other infections with a predominantly sexual mode of transmission complicating childbirth; O99.892 Other specified diseases and conditions complicating childbirth; N73.6 Female pelvic peritoneal adhesions (postinfective); O41.02X0 Oligohydramnios, second trimester, not applicable or unspecified; K66.0 Peritoneal adhesions (postprocedural) (postinfection); A59.9 Trichomoniasis, unspecified; Z79.899 Other long term (current) drug therapy
CPT/HCPCS: 36415; 59409; 80053; 80307; 81001; 83615; 84112; 84550; 85025; 85384; 85610; 85730; 86703; 86762; 86780; 86850; 86900; 86901; 86923; 87340; 87491; 87591; 87661; 94762; A4649; J0689; J0702; J1100; J1885; J2250; J2274; J2371; J2405; J2590; J3010; J3490; J7120; A9270; J2270

== ENCOUNTER 2025-02-10 16:12 | Emergency (ER) | payer MEDICAID, SELFPAY ==
[2025-02-10] VITALS (7 sets, daily range): BP systolic 119–135; BP diastolic 82–96; PULSE 82–129; RESP 17–30; TEMP 36.7–36.8; O2SAT 97–99
--- NOTE | 2025-02-10 16:21 | EKG_ITS ---
[facility] Test Date: 2025-02-10 Pat Name: PRABHA BELL Department: Room: - Gender: Female Picker Packer: : 2000 Requested By: Fatuma Riggins Order Number: [id number] Reading MD: Fatuma Riggins Measurements Intervals [place] Rate: 106 P: 53 WV: 120 QRS: 85 QRSD: 80 T: 54 QT: 321 QTc: 428 Interpretive Statements SINUS TACHYCARDIA MINIMAL ST DEPRESSION [0.025+ mV ST DEPRESSION] ABNORMAL RHYTHM ECG No previous ECG available for comparison /store/S0/[id number]
--- NOTE | 2025-02-10 16:30 | PC.NURSE ---
CALLED [facility]ISON [facility] AND THEY ARE RECOMMENDING THE FOLLOWING EKG Q4H DRUG SCREEN ACETAMINOPHEN / SALICLATE LEVELS ETHANOL LEVEL DR. NAJERA MADE AWARE
[2025-02-10 16:38] LABS: Basophils # (Auto) 0.1 Thou/mm3 (0.0-0.2); Basophils % (Auto) 1 % (0-2.5); Eosinophils # (Auto) 0.0 Thou/mm3 (0.0-0.5); Eosinophils % (Auto) 0 % (0-10); Hematocrit 41.7 % (36.0-46.0); Hemoglobin 15.0 g/dL (12.0-16.0); Immature Granulocytes Auto 0.24 Thou/mm3 (0.00-0.00); Lymphocytes # (Auto) 3.6 Thou/mm3 (1.0-4.8); Lymphocytes % (Auto) 24 % (10-50); Mean Corpuscular HGB Conc 36.0 g/dl (31.0-37.0); Mean Corpuscular Hemoglobin 31.9 pg (25.0-35.0); Mean Corpuscular Volume 89 fL (80-100); Monocytes # (Auto) 0.7 Thou/mm3 (0.0-0.8); Monocytes % (Auto) 5 % (0-12); Neutrophils # (Auto) 10.4 Thou/mm3 (1.8-7.7); Neutrophils % (Auto) 68 % (37-80); Nucleated Red Blood Cell # 0.00 Thou/mm3 (0.00-0.00); Nucleated Red Blood Cell % 0 /100 WBC (0); Platelet Count 530 Thou/mm3 (140-440); RDW Standard Deviation 46.1 fL (36.4-46.3); Red Blood Count 4.70 Miln/mm3 (4.00-5.20); White Blood Count 15.1 Thou/mm3 (3.6-11.0)
[2025-02-10 17:08] LABS: Acetaminophen 24.8 mcg/mL (10.0-20.0); Alanine Aminotransferase 23 U/L (10-49); Albumin, Serum 5.9 gm/dL (3.5-5.0); Albumin/Globulin Ratio 2.0 (1.2-2.2); Alcohol, Blood Medical 301.2 mg/dL (0-10.0); Alkaline Phosphatase 109 U/L (46-116); Anion Gap 14 (7-16); Aspartate Amino Transferase 37 U/L (0-34); BUN/Creatinine Ratio 7 Ratio (12-20); Bilirubin,Total 0.6 mg/dL (0.3-1.2); Blood Urea Nitrogen 7 mg/dL (9-23); Calcium 10.2 mg/dL (8.3-10.6); Calcium (Corrected) 10.2 mg/dL (8.5-10.1); Carbon Dioxide 18.7 mMol/L (20.0-31.0); Chloride 112 mMol/L (98-107); Creatinine (Component) 1.0 mg/dL (0.6-1.3); Globulin 3.0 gm/dL (2.3-3.5); Glucose 118 mg/dL (74-106); Osmolality,Calculated 287 (275-295); Potassium 4.0 mMol/L (3.4-5.1); Salicylate < 3.0 mg/dL; Sodium 145 mMol/L (136-145); Total Protein 8.9 gm/dL (5.7-8.2); eGFR > 60 See Note
--- NOTE | 2025-02-10 17:33 | EDNOTE_ITS ---
ED Overdose RME/HPI General Chief Complaint: Overdose Stated Complaint: OD Time Seen by Provider: 02/10/25 16:21 Arrival date/time: 02/10/25 16:12 RME / HPI RME / HPI Narrative: DR. FRANCISCO MAIN ED EVALUATION: 24-year-old female with no known past medical history presents to the Emergency Department accompanied by her boyfriend, who provides most of the history. The patient reportedly ingested approximately 20 tablets of 50 mg Zoloft about 30?40 minutes prior to arrival, along with 7 shots of liquor. Related Data Home Medications ?Medication ?Instructions ?Recorded ?Confirmed sertraline 25 mg tablet 15 mg PO .q day 08/20/24 vits no.130-ferrous fum 1 tab PO QDAY 5 09/04/24 27 mg iron-folic acid 800 mcg tablet ( Vitamin) Previous Rx's ?Medication ?Instructions ?Recorded hydrocodone 5 mg-acetaminophen 325 1 tab PO Q6H PRN pa in #20 tabs 09/09/24 mg tablet ibuprofen 800 mg tablet 800 mg PO Q6H PRN pain #30 t abs 09/09/24 Allergies Allergy/AdvReac Type Severity Reaction Status Date / Time cephalexin (From Keflex) Allergy Hallucinati Verified 09/04/24 01:59 ng Review of Systems Review of Systems Systems Reviewed: All systems reviewed, normal except as documented Past Medical History Past Medical History GENITOURINARY: Positive Genitourinary Disorders (History of UTI's and bladder infections) REPRODUCTIVE: Positive Previous Pregnancies (X3) HEMATOLOGIC: Positive Blood Disorders and Anemia PSYCHO/SOCIAL: Positive Depression (Zoloft) and Anxiety OTHER HISTORY: Positive Hospitalization (child ) Family History FAMILY HISTORY: Positive Family Psychiatric Problems (Mother-Anxiety, depression / Uncles-depression, suicide), Family Respiratory Disorders (Mother-asthma, Father-COPD), Family Cardiac Disorders (Mother-heart murmur, HTN, father-HTN, grandparents: HTN), Family Cancer (Cousin- breast and thyroid cancer) and Family Surgery (Mother-heart) Surgical History SURGICAL: Positive Section (Low transverse section x2) Social History SMOKING STATUS: Never smoker ED Exam Narrative Physical exam: GENERAL APPEARANCE: Drowsy but arousable; intoxicated appearance; smells of alcohol VITALS: All vitals were reviewed and the pulse ox is 99% on room air, which is normal according to my interpretation. HEENT: Normocephalic, atraumatic; pupils equal, round, reactive to light; EOMI; mucous membranes pink, moist; oropharynx clear NECK: Supple LUNGS: CTABL; no wheezes, no rales, no rhonchi HEART: Regular rate, regular rhythm; normal S1, S2; no murmurs ABDOMEN: non distended; normal BS; soft, no tenderness, no guarding, no rebound; no masses, no organomegaly, no hernia BACK: no CVA tenderness EXTREMITIES: atraumatic; no edema NEUROLOGIC: Drowsy but oriented to person and place; moves all extremities; slurred speech; no focal motor or sensory deficits PSYCHIATRIC: Intoxicated, limited insight; limited reliability SKIN: warm, dry, normal color; no rashes Course Quality Measures none Orders Category Date Time Status 1798 Psychiatric Hold NOW Care 02/10/25 17:00 Ordered Bedside Blood Glucose NOW Care 02/10/25 16:22 Completed Continuous Mining Machine Operator NOW Care 02/10/25 16:22 Completed EKG (ED ONLY) *Do not use* NOW Care 02/10/25 16:22 Completed IV [Insert IV] NOW Care 02/10/25 16:51 Completed One-to-one observation NOW Care 02/10/25 16:46 Completed Diet Regular Diet 02/11/25 Breakfast Active EKG (ED Only) Stat Exams 02/10/25 16:21 Draft Acetaminophen Stat Lab 02/10/25 16:30 Completed Acetaminophen Stat Lab 02/10/25 21:31 Completed Alcohol, Blood Medical Stat Lab 02/10/25 16:30 Completed CBC Stat Lab 02/10/25 16:30 Completed CMP [Comprehensive Metabolic Panel] Stat Lab 02/10/25 16:30 Completed Drug Screen,Urine Stat Lab 02/10/25 17:44 Completed Salicylate Stat Lab 02/10/25 16:30 Completed Acetaminophen Tab [Tylenol Tab] Med 02/11/25 11:01 Discontinued 650 mg PO X1 ONE Metoclopramide Inj [Reglan Inj] Med 02/11/25 01:28 Discontinued 10 mg IVP X1 ONE Metoclopramide Inj [Reglan Inj] Med 02/11/25 06:00 Discontinued 5 mg IVP Q8HR Midazolam Inj [Versed Inj] Med 02/10/25 21:12 Discontinued 2.5 mg IVP X1 ONE Sodium Chloride 0.9% 1000 ml [Ns] 1,000 ml Med 02/10/25 21:12 Discontinued IV 999 mls/hr Sodium Chloride 0.9% 1000 ml [Ns] 1,000 ml Med 02/10/25 21:15 Discontinued IV 999 mls/hr Vital Signs Vital signs: Vital Signs Pulse Rate 129 H 02/10/25 16:13 Respiratory Rate 30 H 02/10/25 16:13 Pulse Oximetry (%) 97 02/10/25 16:13 Oxygen Delivery Method Room Air 02/10/25 16:13 Overdose MDM Narrative MDM Narrative:: I, Abigail Robertson am scribing for and in the presence of Dr. Francisco. Patient data External records reviewed:: [facility] previous records Clinical information provided by:: patient and spouse (boyfriend) Social determinants that could affect healthcare access:: none Patient has the following chronic illnesses:: No known PMHx, surgeries, or daily medications. How is presenting disease/condition affected by chronic disease/condition?: no chronic disease Evaluation data The following diagnostics were reviewed and interpreted by me:: lab results Lab and/or radiology exams considered but not ordered:: none Interpretation Summary: Pending labs, signed out to Dr. Mendenhall. Medications / Prescriptions Medications or Prescriptions considered but not ordered:: none Medication administrations:: Medication Administration History Discontinued Medications Acetaminophen (Acetaminophen 325 Mg Tablet) 650 mg PO X1 ONE Stop: 02/11/25 11:02 Last Admin: 02/11/25 11:35 Dose: 650 mg Documented By: CELESTE Sodium Chloride (Ns) 1,000 mls @ 999 mls/hr IV .Q1H1M ONE Stop: 02/10/25 22:12 Last Infusion: 02/10/25 22:54 Dose: Infused Documented By: Admin: 02/10/25 21:22 Dose: 999 mls/hr Documented By: DT Sodium Chloride (Ns) 1,000 mls @ 999 mls/hr IV .Q1H1M ONE Stop: 02/10/25 22:15 Last Infusion: 02/10/25 22:54 Dose: Infused Documented By: Admin: 02/10/25 21:22 Dose: 999 mls/hr Documented By: DT Metoclopramide HCl (Metoclopramide Inj 5 Mg/Ml Vial 2 Ml) 5 mg IVP Q8HR BRIE; Protocol Stop: 03/13/25 05:59 Metoclopramide HCl (Metoclopramide Inj 5 Mg/Ml Vial 2 Ml) 10 mg IVP X1 ONE; Protocol Stop: 02/11/25 01:29 Last Admin: 02/11/25 03:30 Dose: Not Given Documented By: TEODORA(2) Non-Admin Reason: Patient Refused Midazolam HCl (Midazolam Inj 1 Mg/Ml Vial 2 Ml) 2.5 mg IVP X1 ONE Stop: 02/10/25 21:13 Last Admin: 02/10/25 21:24 Dose: 2.5 mg Documented By: DT see above if any Consultations Consultation(s) initiated? (list below): No Diagnosis Overdose Differential Diagnosis: other (Intentional overdose, acute alcohol intoxication, and serotonin toxicity.) Most likely diagnosis given after review of the tests above:: No official diagnoses at this time, still pending diagnostic tests. Patient signout to the shift supervisor melting provider. Admission Indicated Admission indicated?: not indicated Explain why admission is indicated or not indicated:: No final disposition plan at this time, still pending diagnostic tests. Patient signout to the shift supervisor melting provider. Admission Request Was there a request for admission?: No Disposition Plan Disposition Plan: other (specify) (Patient signed out to Dr. Mendenhall.) Discharge Plan Plan Patient Disposition: [facility] Prescriptions/Referrals Prescriptions/Med Rec: No Action sertraline 25 mg tablet 15 mg PO .q day Patient Comments: TAKE 1 TABLET BY MOUTH ONCE DAILY Vitamin 27 mg iron- 800 mcg tablet 1 tab PO QDAY hydrocodone-acetaminophen 5-325 mg tablet 1 tab PO Q6H MDD 4 PRN (Reason: pain) Qty: 20 0RF Rx Instructions: Had a Delivery ibuprofen 800 mg tablet 800 mg PO Q6H PRN (Reason: pain) Qty: 30 0RF Referrals: No Primary/Family,Physician [Primary Care Provider] - In 1 week Problem List Clinical Impression: Suicide attempt by drug overdose Patient/Caregiver Discharge Instructions Print Language: Sudanese Stand Alone Forms: Anya Award Info., Patient Portal Info Letter
--- NOTE | 2025-02-10 18:16 | EDNOTE_ITS ---
Emergency Room Addendum Addendum Narrative: 1800: Care assumed from Dr. Francisco (emergency physician). Past medical, surgical, social and family history reviewed. Vitals and home medications reviewed. Results and treatment plan discussed. I will assume the care of the patient at this time and will follow the patient, pending toxicology screen. The following addendum documentation note is intended to reflect any pending information, findings, or radiology results not included in the patient?s ini tial chart by the previous shift scribe. 21:07 - Patient presents after having ingested 13 Sertraline 50 mg tablets at 1 PM after drinking heavily during the AM hours. Reports ingested the pills in an effort to allay panic, which she suffers from regularly. Patient placed on rn cardiac rehab, IV established, and was aggressively hydrated and treated with benzodiazepines. Patient is in an hyperadrenergic state as she has been persistent tachy rates in 120 range. Psychiatric screening laboratory data demonstrates WBC of 15, hemoconcentration with hemoglobin of 15 and noted thrombocytosis with platelet count of 130, possibly due to acute phase reaction secondary to stress. Coag profile within normal limits serum radha low CO2 of 18.7 suggesting underlying metabolic acid osis. UA tox screen positive for marijuana. UA equivocal for evidence of infection. ASA undetected. Initial Acetaminophen of 24.8. Patient will likely require 6-hour observation period prior to psychiatric evaluation. Final diagnoses include intentional SSRI overdose, Alcohol abuse disorder, and polysubstance abuse. EKG demonstrates Sinus tachycardia of 106 bpm, no acute ST segment changes, no ventricular ectopy, axis rightward, intervals normal, per my interpretation. 06:00 - Care assumed by Dr. Francisco (emergency physician). Past medical, surgical, social and family history reviewed. Vitals and home medications reviewed. Results and treatment plan discussed. They will assume the care of the patient at this time and will follow the patient, pending psychiatric evaluation.
[2025-02-10 18:23] LABS: Amphetamine/Methamp Scrn,U Negative (Negative); Barbiturate Screen,Urine Negative (Negative); Benzodiazepines Screen,Urine Negative (Negative); Benzoylecgonine Screen, Ur Negative (Negative); Fentanyl Screen,Urine Negative (Negative); Opiate Screen,Urine Negative (Negative); THC Screen,Urine Positive (Negative)
[2025-02-10] MEDS: SODIUM CHLORIDE 0.9% 1000 ML 1,000 ML 999 ML IV ×2 (21:22)
[2025-02-10] MEDS: MIDAZOLAM INJ 1 MG/ML VIAL 2 ML 2.5 MG IVP (21:24)
[2025-02-10 22:29] LABS: Acetaminophen 2.0 mcg/mL (10.0-20.0)
[2025-02-11] VITALS (9 sets, daily range): BP systolic 114–136; BP diastolic 59–80; PULSE 71–97; RESP 16–18; TEMP 36.4–37.1; O2SAT 96–99; BMI 23.0
--- NOTE | 2025-02-11 07:10 | PC.NURSE ---
SS worker at bedside to assess pt.
--- NOTE | 2025-02-11 07:30 | PC.NURSE ---
In to assess pt. Pt tearful at this time with c/o anxiety about situation that happened yesterday. Pt reports OD attempt yesterday but states she does not remember why she did it, states she was drunk. Pt without further complaints at this time. Fiance at bedside. Plan of care ongoing.
--- NOTE | 2025-02-11 08:49 | PC.CC ---
Patient is a 24 year-old female who was brought in by significant other Ron Vences for intentional overdose of 13 Zoloft pills. Patient was placed on a 1799 at 1700 on 02/10/2025. Racquel made [id number] contact with patient to complete assessment. TILE MECHANIC HELPER introduced self, role, and reason for assessment. At bedside was patient?s significant other Ron Vences whom patient provided verbal consent to remain in the room during assessment. TILE MECHANIC HELPER disclosed limits of confidentiality as well. Patient appeared alert and oriented to self, place, and situation. Patient made appropriate eye contact with this telegraphic typewriter mechanic. Patient appeared to be depressed with a flat affect and disinhibited. Patient?s attitude was pleasant and cooperative. No signs of delusions, paranoia or hallucinations. Patient confirmed information on demographics and reports to living with her significant other Ron Vences. Patient confirmed she is independent with her ADLs and is able to ambulate independently. Patient reports yesterday she began drinking since the morning hours. She stated she had drank 6-7 shots of ?99 Liqueur.? She reports that she drank a handful of Zoloft pills but reports she does not recall why she did it. Patient reports that now that she is sober she does not know if she did it with the intention of ending her life as she was too intoxicated to recall. Patient expressed she immediately regretted taking the pills and told her significant other and asked him to bring her to the hospital. Patient reports she has been feeling sad as she lost 3 children two of which were stillborn and the other lives 19 days before passing. Patient reports she has been feeling depressed and has been drinking since October but has increased in alcohol consumption to every other day in January. Patient is not connected to outpatient mental health services and has no history of mental health. Patient reports she sees her primary OB for her Zoloft. Patient denied past suicidal ideation or self-harm. At the time of encounter patient denied suicidal and homicidal ideations, visual and auditory hallucinations. Patient?s significant other who is at bedside confirmed information. Patient?s Mcpherson Screening was High Risk. Upon clinical consultation with [facility], Gabriellazach Lezama patient will be placed on a 5150-hold for Danger to Self and 1799 will be credited. TILE MECHANIC HELPER provided advisement to patient of 5150-hold and provided her with patient?s rights handbook. TILE MECHANIC HELPER provided update to medical staff of transferring patient to LPS facility. TILE MECHANIC HELPER to send referral to LPS facilities on [facility].
--- NOTE | 2025-02-11 10:02 | EDNOTE_ITS ---
Emergency Room Addendum <Fatuma Francisco MD - Last Filed: 02/11/25 10:03> Addendum Narrative: 0600: Medically cleared for evaluation by social work. Evaluated by social work. Placed on 5150. <Abigail Robertson - Last Filed: 02/11/25 14:55> Addendum Narrative: 0600: Care assumed from Dr. Mendenhall, the previous shift emergency physician. Past medical, surgical, social and family history reviewed. Vitals and home medications reviewed. I will assume the care of the patient at this time, pending psychiatric evaluation. Medically cleared for evaluation by social work. Please refer to the emergency department record for history and examination from initial visit.? Physical exam by me shows patient under no acute distress at this time. Evaluated by social work. Placed on 7814. 1018: Accepted to [facility].
--- NOTE | 2025-02-11 10:18 | PC.NURSE ---
Addendum entered by Cecile Morataya RN 02/11/25 10:33: SPOKE WITH HALI PAGE. PT ACCEPTED TO [facility] BY DR CARRENO, UNIT [address], [employer]SEM[employer]Y LABORER TIME 12. Original Note: SPOKE WITH HALI PAGE. PT ACCEPTED TO [facility], UNIT [address], [employer]ITION ASSEMBLY LABORER TIME 12.
--- NOTE | 2025-02-11 10:44 | PC.CC ---
Nicole PUENTES received accepting information from [facility] for [facility]. DELORIS provided accepting update to medical team and patient.
--- NOTE | 2025-02-11 11:00 | PC.NURSE ---
PT WITH C/O HEADACHE, PROVIDER NOTIFIED, ORDERS RECEIVED AND INITIATED.
[2025-02-11] MEDS: ACETAMINOPHEN 325 MG TABLET 650 MG PO (11:35)
== END 2025-02-11 13:35 ==
PROVIDERS: Emergency Medicine; Emergency Provider Emergency Medicine
DX: T50.902A Poisoning by unspecified drugs, medicaments and biological substances, intentional self-harm, initial encounter (principal)
CPT/HCPCS: 36415; 80053; 80307; 80320; 80329; 85025; 93005; 96127; 96361; 96374; 99284; J2250; J7030; A9270; G0480